=== PATIENT | male | born 1985 | race Caucasian/White ===

== ENCOUNTER → 2016-06-15 | Outpatient (CLI) | payer OTHER ==
[~2016-06-15] MED LIST: /DULO30CA PO; /LAMO10TA PO; AMBI10TA PO; ATIV1TAB10 PO; BACL10TA2 PO; BUTR5DIS2 TD; CELE20TA PO; CLAR5CHW PO; CLARITAN; CLARITIN PO; COQ10 PO; CYCL10TA3 PO; DAILTAB56 PO; Effexor XR PO; FERR325T PO; FERR325T3 PO; FLEXERIL PO; FURO20TA2 PO; INDO50CA PO; LAMI200T3 PO; LASI20TA PO; LIPI10TA PO; LORA10TA2 PO; LORA1TAB PO; MELO15TA3 PO; MELO7.5T6 PO; MELOPOW PO; METO25TA2 OR; METO50TA2 PO; NAPR500T2 PO; NO HOME MEDS; NYST100024 TOP; OMEP20TA7 PO; POTA20TA PO; PRAM0.123 PO; PRAMIPEXOLE PO; PRIL40CA PO; PROBCAP13 PO; RANI150T PO; RANI15TA PO; RISP0.5T3 PO; SPIR25TA2 PO; TRAZ100T2 PO; TRAZ50TA4 PO; ULTR100T PO; VICO5TAB PO; VIST25CA PO; VITA-121 PO; VITA10002 PO; ZYRT10CA PO
--- NOTE | 2016-06-15 12:56 | REP ---
Clinical: Pain. Sciatica. Technique: Single AP view of the pelvis. Findings: Bilateral hips appear symmetric and normal for age. Pelvis is unremarkable. Osseous structures, joint spaces, and surrounding soft tissues are within normal limits. Impression: Normal pelvic radiograph. Signed by Richie Toledo MD 06/15/2016 12:48 P
--- NOTE | 2016-06-15 12:59 | REP ---
Clinical: Lower back pain. Technique: AP, lateral, and coned-down views of the lumbosacral spine. Comparison: 06/11/2009. Findings: Alignment and lordosis maintained. No acute fracture / compression injury or subluxation. Anterior spurring with endplate sclerosis and disc space narrowing along with mild hypertrophic facet changes at the L5-S1 level suggested as well as anterior osteophytosis at the T11-12 level which appears relatively stable. Impression: Mild/early moderate degenerative changes primarily involving the L5-S1 level. No acute fracture / compression injury or subluxation. Signed by Richie Toledo MD 06/15/2016 12:50 P
--- NOTE | 2016-06-15 14:29 | REP ---
MR LUMBAR SPINE WITHOUT CONTRAST: HISTORY: Back and bilateral leg pain. COMPARISON: 09/01/2011 Decreased signal intensity on T2-weighted images is present in the L2-3, L3-4, and L5-S1 intervertebral discs. The discs are decreased in height. These findings are consistent with disc degeneration. There is no disc bulge or herniation at the L1-2 through L4-5 levels. There is hypertrophy of the posterior articulating facets at the L3-4 and L4-5 levels. The nerves exit the neural foramina without compression. A diffuse disc bulge with associated osteophyte formation is present at the L5-S1 level. There is no thecal sac compression. A small right intraforaminal disc protrusion is present. This abuts the right L5 nerve in the distal neural foramen. The left L5 nerve exits the neural foramen without compression. The conus medullaris is normal in appearance terminating at the level of the L1 vertebral body. Increased signal intensity on T2-weighted images is present in the endplates of the L5 and S1 vertebral bodies. This represents degenerative change. IMPRESSION: Diffuse disc bulge at the L5-S1 level without thecal sac compression. A small right intraforaminal disc protrusion is present. This abuts the right L5 nerve in the distal neural foramen. There is no change compared to the previous study. Signed by Magdi Wallace MD 06/15/2016 02:42 P
== END ==
LOC: M RAD 12:19
PROVIDERS: ATTEND Pain Medicine Pain Medicine
DX: M51.26 Other intervertebral disc displacement, lumbar region (principal); M51.36 Other intervertebral disc degeneration, lumbar region

== ENCOUNTER → 2016-07-01 | Outpatient (CLI) | payer OTHER ==
--- NOTE | 2016-07-03 19:26 | SLEEPCENT ---
DATE OF PROCEDURE: 07/01/2016 ORDERED BY: La Mclaughlin Nocturnal polysomnography was performed for the titration of pressure therapy in this patient with obstructive sleep apnea syndrome on clinical grounds with home testing revealing a respiratory event index of 6.4. For testing, the patient was fit with a Flooved Simplus full face mask of medium size, 5 cm of water pressure were applied to the circuit and the lights were extinguished. 7 hours and 38 minutes of data were reviewed. There were 262 minutes of sleep identified. Sleep latency was prolonged at 45 minutes. Rapid eye movement (REM) latency was prolonged at 348 minutes. Sleep architecture improved late in the study and optimal pressure therapy. Overall sleep efficiency was 58%. Patient's EKG showed a sinus rhythm with an average heart rate of 52 beats per minute. EEG showed normal wave forms for wake and sleep. Respiratory events were fully palliated with CPAP air pressure of +15. Remaining measures of sleep physiology were normal. IMPRESSION: Obstructive sleep apnea syndrome (G47.33). RECOMMENDATIONS: Nightly use of pressure therpay, 15 cm of water.
== END ==
LOC: M SLEEP 20:06
PROVIDERS: ATTEND Nurse Practitioner Adult Health
DX: G47.33 Obstructive sleep apnea (adult) (pediatric) (principal)

== ENCOUNTER → 2016-07-31 | Outpatient (REF) | payer OTHER ==
[2016-07-31 11:57] LABS: BASO % 0.3 % (0.0-1.0); EOS # 0.4 K/mm3 (0.0-0.50); EOS % 3.6 % (0.0-3.0); LARGE UNSTAINED CELL # 0.1 K/mm3 (0.0-0.4); LARGE UNSTAINED CELL % 0.7 % (0.0-4.0); LYMPH # 1.9 K/mm3 (1.5-4.5); LYMPH % 16.3 % (24.0-44.0); MEAN CORPUSCULAR HEMOGLOBIN 30.4 pg (27.0-33.0); MEAN CORPUSCULAR HGB CONC 32.8 g/dl (32.0-36.5); MEAN CORPUSCULAR VOLUME 92.8 fl (80.0-96.0); MONO # 0.7 K/mm3 (0.0-0.8); MONO % 6.3 % (0.0-5.0); NEUTROPHILS # 8.1 K/mm3 (1.8-7.7); NEUTROPHILS % 72.8 % (36.0-66.0); PLATELET COUNT, AUTOMATED 264 k/mm3 (150-450); RED CELL DISTRIBUTION WIDTH 13.1 % (11.5-14.5); WHITE BLOOD COUNT 11.2 K/mm3 (4.0-10.0)
[2016-07-31 12:27] LABS: ALBUMIN 3.9 GM/DL (3.2-5.2); ALBUMIN/GLOBULIN RATIO 1.22 (1.00-1.93); ALKALINE PHOSPHATASE 70 U/L (45-117); ALT/SGPT 18 U/L (12-78); ANION GAP 7 MEQ/L (8-16); AST/SGOT 8 U/L (15-37); BILIRUBIN,TOTAL 0.1 MG/DL (0.2-1.0); BLOOD UREA NITROGEN 12 MG/DL (7-18); CALCIUM LEVEL 8.9 MG/DL (8.5-10.1); CARBON DIOXIDE LEVEL 30 MEQ/L (21-32); CHLORIDE LEVEL 103 MEQ/L (98-107); CREATININE FOR GFR 0.83 MG/DL (0.70-1.30); GLOMERULAR FILTRATION RATE > 60.0 (>60); GLUCOSE, FASTING 90 MG/DL (70-105); POTASSIUM SERUM 4.7 MEQ/L (3.5-5.1); SODIUM LEVEL 140 MEQ/L (136-145); TOTAL PROTEIN 7.1 GM/DL (6.4-8.2)
== END ==
LOC: M SFHCCLAY 08:55
PROVIDERS: ATTEND Family Medicine
DX: D50.9 Iron deficiency anemia, unspecified (principal); I10 Essential (primary) hypertension

== ENCOUNTER → 2016-07-31 | Outpatient (CLI) | payer OTHER ==
--- NOTE | 2016-07-31 10:50 | REP ---
Clinical: Cervicalgia. Technique: AP, lateral, flexion/extension, and open-mouth views. Comparison: 02/26/2005. Findings: Degenerative disc osteophyte complex at the C6-7 level and to a lesser extent C5-6 level includes anterior osteophytes with endplate sclerosis and minimal disc space narrowing. Alignment and lordosis maintained. No acute fracture / compression injury or subluxation. Open mouth view demonstrates normal C1-C2 articulation and odontoid process. Neural foramen appear relatively patent. Impression: Moderate to advanced degenerative disc osteophyte complex at the C6-7 and C5-6 levels.
--- NOTE | 2016-07-31 10:55 | REP ---
Clinical: Thoracic pain. Technique: AP, lateral, and swimmer's views of the thoracic spine. Findings: AP view demonstrates mild focal levoconvex scoliosis involving T7 - T9 which is likely chronic with suggestions for endplate sclerosis/disc narrowing and bridging osteophyte at the right T8-9 level. Alignment and kyphosis is otherwise maintained. There is no evidence for acute fracture / compression injury or subluxation. No further significant degenerative changes. Impression: Mild focal levoconvex scoliosis at T7 - T9 with mild degenerative changes
== END ==
LOC: M CLY 09:44
PROVIDERS: ATTEND Family Medicine
DX: M41.34 Thoracogenic scoliosis, thoracic region (principal); M50.322 Other cervical disc degeneration at C5-C6 level; M50.323 Other cervical disc degeneration at C6-C7 level

== ENCOUNTER → 2016-08-28 | Outpatient (CLI) | payer OTHER ==
--- NOTE | 2016-08-28 14:14 | REP ---
MR CERVICAL SPINE WITHOUT CONTRAST: HISTORY: Neck pain. A disc bulge is present at the C4-5 level. There is minimal effacement of the thecal sac without spinal cord compression. The C4 neural foramina are patent. A disc bulge is present at the C5-6 level. There is minimal effacement of the thecal sac without spinal cord compression. The C5 neural foramina are patent. A disc bulge is present at the C6-7 level. There is mild effacement of the thecal sac without spinal cord compression. The C6 neural foramina are patent. There is no other disc bulge or herniation. The remaining neural foramina are patent. The spinal cord is normal in signal intensity. The C5-6 intervertebral disc is decreased in height consistent with disc degeneration. Normal signal intensity is present in the cervical vertebral bodies. IMPRESSION: There is cervical spondylosis at the C4-5 through C6-7 levels without spinal cord compression. Signed by Magdi Wallace MD 08/28/2016 02:19 P
== END ==
LOC: M PLARAD 13:03
PROVIDERS: ATTEND Family Medicine
DX: M47.812 Spondylosis without myelopathy or radiculopathy, cervical region (principal)

== ENCOUNTER 2016-10-11 00:44 | Inpatient (IN) | payer OTHER ==
[~2016-10-11] VITALS: Ht 172.7 cm; Wt 193.2 kg
[2016-10-11] MEDS ORDERED: MELO15TA4 PO (01:02)
[2016-10-11] MEDS ORDERED: BACL-67 PO (01:02)
[2016-10-11] MEDS ORDERED: AMBI10TA PO (01:04)
[2016-10-11] MEDS ORDERED: ZOLO100T PO (01:04)
[2016-10-11] MEDS ORDERED: LATU1TAB PO (01:04)
[2016-10-11] MEDS ORDERED: GABA-282 PO (01:05)
[2016-10-11] MEDS ORDERED: ONDANSETRON 4MG/2ML VIAL (J2405) IV PRN (02:15)
[2016-10-11] MEDS ORDERED: MORPHINE 4 MG/ML 1ML SYRINGE IV ONE (02:15)
[2016-10-11] MEDS: LR 1,000 ML IV SCH ×3 (02:17→20:19)
[2016-10-11] MEDS ORDERED: LAMO100T PO (02:45)
[2016-10-11] MEDS ORDERED: LORA1TAB12 PO (02:45)
[2016-10-11] MEDS ORDERED: OMEP40CA2 PO (02:45)
[2016-10-11] MEDS ORDERED: SPIR50TA2 PO (02:46)
[2016-10-11] MEDS ORDERED: zolPIDEM TARTRATE 10MG TAB PO PRN (09:30)
[2016-10-11 09:59] LABS: ANION GAP 6 MEQ/L (8-16); BLOOD UREA NITROGEN 10 MG/DL (7-18); CALCIUM LEVEL 8.3 MG/DL (8.5-10.1); CARBON DIOXIDE LEVEL 29 MEQ/L (21-32); CHLORIDE LEVEL 104 MEQ/L (98-107); CREATININE FOR GFR 0.75 MG/DL (0.70-1.30); GLOMERULAR FILTRATION RATE > 60.0 (>60); GLUCOSE, FASTING 98 MG/DL (70-105); POTASSIUM SERUM 4.1 MEQ/L (3.5-5.1); SODIUM LEVEL 139 MEQ/L (136-145)
[2016-10-11 10:41] LABS: MEAN CORPUSCULAR HEMOGLOBIN 31.3 pg (27.0-33.0); MEAN CORPUSCULAR HGB CONC 33.7 g/dl (32.0-36.5); MEAN CORPUSCULAR VOLUME 92.9 fl (80.0-96.0); RED CELL DISTRIBUTION WIDTH 12.9 % (11.5-14.5); WHITE BLOOD COUNT 10.6 K/mm3 (4.0-10.0)
[2016-10-11] MEDS: CIPROFLOXACIN 400 MG in APPROPRIATE DILUENT 1 EA IV SCH ×2 (11:28→20:32)
[2016-10-11] MEDS: GABAPENTIN 300 MG CAP PO SCH ×3 (11:28→20:22)
[2016-10-11] MEDS: FERROUS SULFATE 325MG TAB PO SCH ×2 (11:28→20:19)
[2016-10-11] MEDS: BACLOFEN 10 MG TAB PO SCH ×4 (11:29→20:20)
[2016-10-11] MEDS: LORazepam 1 MG TAB PO SCH (11:29)
[2016-10-11] MEDS: SPIRONOLACTONE 50 MG TAB PO SCH (11:29)
[2016-10-11] MEDS: lamoTRIgine 100MG TAB PO SCH ×2 (11:30→20:19)
[2016-10-11] MEDS: CETIRIZINE (ZyrTEC) 10 MG TAB PO SCH (11:30)
[2016-10-11] MEDS: SERTRALINE 100 MG TAB PO SCH (11:31)
[2016-10-11] MEDS: FAMOTIDINE 20 MG TAB PO SCH ×2 (11:31→20:21)
[2016-10-11] MEDS: OMEPRAZOLE 20 MG CAP PO SCH (11:31)
[2016-10-11] MEDS: MORPHINE 10 MG/ML 1ML VIAL IV PRN ×2 (12:32→20:26)
[2016-10-11] MEDS: metroNIDAZOLE 500 MG in APPROPRIATE DILUENT 1 EA IV SCH ×2 (12:32→18:41)
[2016-10-11 14:00] VITALS: BP 114/53
[2016-10-11] MEDS: LURASIDONE 20 MG TAB (LATUDA) PO SCH (20:20)
[2016-10-11] MEDS: PRAMIPEXOLE (MIRAPEX) 0.125 MG TAB PO SCH (20:21)
[2016-10-11] MEDS: PRAZOSIN 1 MG CAP PO SCH (21:58)
[2016-10-11 22:00] VITALS: BP 142/84
[2016-10-12] MEDS: metroNIDAZOLE 500 MG in APPROPRIATE DILUENT 1 EA IV SCH ×3 (03:13→18:40)
[2016-10-12] MEDS: LR 1,000 ML IV SCH (03:13)
[2016-10-12 06:00] VITALS: BP 106/53
[2016-10-12] MEDS: OMEPRAZOLE 20 MG CAP PO SCH (08:42)
[2016-10-12] MEDS: GABAPENTIN 300 MG CAP PO SCH ×3 (08:42→21:41)
[2016-10-12] MEDS: SERTRALINE 100 MG TAB PO SCH (08:42)
[2016-10-12] MEDS: FERROUS SULFATE 325MG TAB PO SCH ×2 (08:42→21:41)
[2016-10-12] MEDS: FAMOTIDINE 20 MG TAB PO SCH ×2 (08:43→21:42)
[2016-10-12] MEDS: CETIRIZINE (ZyrTEC) 10 MG TAB PO SCH (08:43)
[2016-10-12] MEDS: lamoTRIgine 100MG TAB PO SCH ×2 (08:43→21:41)
[2016-10-12] MEDS: LORazepam 1 MG TAB PO SCH (08:43)
[2016-10-12] MEDS: BACLOFEN 10 MG TAB PO SCH ×4 (08:43→21:41)
[2016-10-12] MEDS: SPIRONOLACTONE 50 MG TAB PO SCH (08:43)
[2016-10-12 09:28] LABS: MEAN CORPUSCULAR HEMOGLOBIN 31.9 pg (27.0-33.0); MEAN CORPUSCULAR HGB CONC 33.8 g/dl (32.0-36.5); MEAN CORPUSCULAR VOLUME 94.4 fl (80.0-96.0); RED CELL DISTRIBUTION WIDTH 12.8 % (11.5-14.5); WHITE BLOOD COUNT 7.5 K/mm3 (4.0-10.0)
[2016-10-12 10:00] VITALS: BP 138/84
[2016-10-12] MEDS: CIPROFLOXACIN 400 MG in APPROPRIATE DILUENT 1 EA IV SCH ×2 (10:07→21:41)
[2016-10-12 14:00] VITALS: BP 136/82
[2016-10-12] MEDS: PRAMIPEXOLE (MIRAPEX) 0.125 MG TAB PO SCH (21:41)
[2016-10-12 21:42] VITALS: BP 133/73
[2016-10-12] MEDS: LURASIDONE 20 MG TAB (LATUDA) PO SCH (21:42)
[2016-10-12] MEDS: PRAZOSIN 1 MG CAP PO SCH (21:42)
[2016-10-12 22:00] VITALS: BP 124/60
[2016-10-13] MEDS: metroNIDAZOLE 500 MG in APPROPRIATE DILUENT 1 EA IV SCH (03:48)
[2016-10-13 06:00] VITALS: BP 158/58
[2016-10-13] MEDS: lamoTRIgine 100MG TAB PO SCH (09:04)
[2016-10-13] MEDS: OMEPRAZOLE 20 MG CAP PO SCH (09:05)
[2016-10-13] MEDS: GABAPENTIN 300 MG CAP PO SCH (09:05)
[2016-10-13] MEDS: FERROUS SULFATE 325MG TAB PO SCH (09:05)
[2016-10-13] MEDS: SPIRONOLACTONE 50 MG TAB PO SCH (09:05)
[2016-10-13] MEDS: BACLOFEN 10 MG TAB PO SCH (09:05)
[2016-10-13] MEDS: SERTRALINE 100 MG TAB PO SCH (09:05)
[2016-10-13] MEDS: FAMOTIDINE 20 MG TAB PO SCH (09:05)
[2016-10-13] MEDS: CETIRIZINE (ZyrTEC) 10 MG TAB PO SCH (09:05)
[2016-10-13] MEDS: LORazepam 1 MG TAB PO SCH (09:06)
[2016-10-13 10:00] VITALS: BP 154/60
[2016-10-13] MEDS ORDERED: FLAG500T PO (10:12)
[2016-10-13] MEDS ORDERED: CIPR500T89 PO (10:12)
== END 2016-10-13 10:45 | disposition home or self-care (01) | DRG 244 ==
LOC: EDBD 00:44 → M ED 02:15 → M ED INP 02:16 → M MS5PR 02:16
PROVIDERS: ADMIT Surgery; ATTEND Surgery
DX: K57.32 Diverticulitis of large intestine without perforation or abscess without bleeding (principal)

== ENCOUNTER → 2018-05-06 | Outpatient (REF) | payer MEDICARE, MEDICAID ==
[~2018-05-06] MED LIST changes: +BACL1TAB9 PO; +CIPR-249 PO; +FLAG500T PO; +GABA-843 PO; +LAMI1TAB9 PO; -LAMI200T3 PO; +LAMO100T PO; +LATU1TAB PO; +LORA-243 PO; -LORA10TA2 PO; +LORA1TAB12 PO; +MELO15TA28 PO; -MELO7.5T6 PO; +MELO7.5T7 PO; +NAPR-885 PO; -NAPR500T2 PO; -NYST100024 TOP; +NYST1POW9 TOP; +OMEP40CA2 PO; -PRAM0.123 PO; +PRAM0.126 PO; +SPIR-10 PO; -SPIR25TA2 PO; +SPIR50TA4 PO; +TRAZ-160 PO; -TRAZ50TA4 PO; +ZOLO100T PO
[2018-05-06 17:42] LABS: ALBUMIN 3.6 GM/DL (3.2-5.2); ALT/SGPT 39 U/L (12-78); BILIRUBIN,TOTAL 0.2 MG/DL (0.2-1.0); BLOOD UREA NITROGEN 10 MG/DL (7-18); CALCIUM LEVEL 9.5 MG/DL (8.5-10.1); CARBON DIOXIDE LEVEL 31 MEQ/L (21-32); CHLORIDE LEVEL 99 MEQ/L (98-107); GLOMERULAR FILTRATION RATE > 60.0 (>60); GLUCOSE, FASTING 98 MG/DL (70-100); POTASSIUM SERUM 4.9 MEQ/L (3.5-5.1); SODIUM LEVEL 136 MEQ/L (136-145); TOTAL PROTEIN 7.5 GM/DL (6.4-8.2)
== END ==
LOC: M SFHCCLAY 11:21
PROVIDERS: ATTEND Family Medicine
DX: I10 Essential (primary) hypertension (principal)
CPT/HCPCS: 80053; G0463

== ENCOUNTER → 2018-08-04 | Outpatient (REF) | payer MEDICARE, MEDICAID ==
[~2018-08-04] MED LIST changes: -/DULO30CA PO; -/LAMO10TA PO; +CYMB1CAP5 PO; +LAMI1TAB7 PO
[2018-08-04 18:24] LABS: BASO # 0.1 10^3/uL (0.0-0.2); BASO % 0.5 % (0.0-1.0); EOS # 0.3 10^3/uL (0.0-0.50); EOS % 2.6 % (0.0-3.0); HEMATOCRIT 40.2 % (42.0-52.0); HEMOGLOBIN 12.7 g/dl (13.5-17.5); LYMPH # 2.2 10^3/uL (1.5-4.5); LYMPH % 18.9 % (24.0-44.0); MEAN CORPUSCULAR HGB CONC 31.6 g/dl (32.0-36.5); MEAN CORPUSCULAR VOLUME 94.8 fl (80.0-96.0); MONO # 1.1 10^3/uL (0.0-0.8); MONO % 9.2 % (0.0-5.0); NEUTROPHILS # 7.9 10^3/uL (1.8-7.7); NEUTROPHILS % 67.1 % (36.0-66.0); PLATELET COUNT, AUTOMATED 325 10^3/uL (150-450); RED BLOOD COUNT 4.24 10^6/uL (4.30-6.10); WHITE BLOOD COUNT 11.7 10^3/uL (4.0-10.0)
[2018-08-04 18:49] LABS: ALBUMIN 3.4 GM/DL (3.2-5.2); ALT/SGPT 29 U/L (12-78); BILIRUBIN,TOTAL 0.1 MG/DL (0.2-1.0); BLOOD UREA NITROGEN 9 MG/DL (7-18); CALCIUM LEVEL 8.7 MG/DL (8.5-10.1); CARBON DIOXIDE LEVEL 25 MEQ/L (21-32); CHLORIDE LEVEL 106 MEQ/L (98-107); CHOLESTEROL LEVEL 201 MG/DL (<200); CHOLESTEROL RISK RATIO 5.742 (<5); GLOMERULAR FILTRATION RATE > 60.0 (>60); GLUCOSE, FASTING 122 MG/DL (70-100); HDL CHOLESTEROL 35 MG/DL (>40); IRON (FE) 48 UG/DL (65-175); LDL CHOLESTEROL 100 MG/DL (<100); NON-HDL-C 166 MG/DL; SODIUM LEVEL 138 MEQ/L (136-145); THYROXINE (T4) 9.6 UG/DL (4.5-12.0); TOTAL PROTEIN 6.8 GM/DL (6.4-8.2); TRIGLYCERIDES LEVEL 330 MG/DL (<150)
[2018-08-04 18:52] LABS: VITAMIN B12 LEVEL 1109 PG/ML (247-911)
== END ==
LOC: M SFHCCLAY 13:41
PROVIDERS: ATTEND Family Medicine
DX: I10 Essential (primary) hypertension (principal); E66.01 Morbid (severe) obesity due to excess calories; R06.02 Shortness of breath; D50.9 Iron deficiency anemia, unspecified; E78.5 Hyperlipidemia, unspecified
CPT/HCPCS: 80053; 80061; 82607; 83540; 84436; 84443; 85025; G0463

== ENCOUNTER → 2018-11-10 | Outpatient (REF) | payer MEDICARE, MEDICAID ==
[~2018-11-10] MED LIST changes: -INDO50CA PO; +INDO50CA11 PO; -TRAZ-160 PO; +TRAZ-252 PO
[2018-11-11 12:20] LABS: BASO # 0.1 10^3/uL (0.0-0.2); BASO % 0.7 % (0.0-1.0); EOS # 0.4 10^3/uL (0.0-0.50); EOS % 2.7 % (0.0-3.0); HEMATOCRIT 42.2 % (42.0-52.0); HEMOGLOBIN 13.4 g/dl (13.5-17.5); LYMPH # 2.3 10^3/uL (1.5-4.5); LYMPH % 17.3 % (24.0-44.0); MEAN CORPUSCULAR HEMOGLOBIN 30.9 pg (27.0-33.0); MEAN CORPUSCULAR HGB CONC 31.8 g/dl (32.0-36.5); MEAN CORPUSCULAR VOLUME 97.2 fl (80.0-96.0); MONO # 1.1 10^3/uL (0.0-0.8); MONO % 8.5 % (0.0-5.0); NEUTROPHILS % 68.8 % (36.0-66.0); PLATELET COUNT, AUTOMATED 328 10^3/uL (150-450); RED BLOOD COUNT 4.34 10^6/uL (4.30-6.10); WHITE BLOOD COUNT 13.1 10^3/uL (4.0-10.0)
== END ==
LOC: M SFHCCLAY 14:20
PROVIDERS: ATTEND Family Medicine
DX: D50.9 Iron deficiency anemia, unspecified (principal)
CPT/HCPCS: 83540; 85025; G0463

== ENCOUNTER → 2018-11-10 | Outpatient (CLI) | payer MEDICARE, MEDICAID ==
--- NOTE | 2018-11-10 16:57 | REP ---
Left knee series: Six views. History: Left knee pain. Findings: Six radiographic views of the left knee demonstrate advanced medial compartment and lateral compartment osteoarthritis with spurring. Mild patellofemoral narrowing and spur formation is seen. No erosive changes seen. No fractures noted. Impression: Moderate three compartment osteoarthritis of the left knee. Electronically Signed by Mukesh Clemens MD 11/10/2018 04:49 P
== END ==
LOC: M CLY 14:46
PROVIDERS: ATTEND Family Medicine
DX: M17.12 Unilateral primary osteoarthritis, left knee (principal); M79.662 Pain in left lower leg

== ENCOUNTER → 2018-12-22 | Outpatient (CLI) | payer MEDICARE, MEDICAID ==
[~2018-12-22] MED LIST changes: +BUPR50TA PO; +D3400CAP PO; -INDO50CA11 PO; +INDO50CA91 PO; -LAMO100T PO; +LAMO100T3 PO; +LISI10TA4 PO; -LORA1TAB12 PO; +LORA1TAB4 PO; +NALT50TA4 PO; -OMEP40CA2 PO; +OMEP40CA97 PO; +PRAM1.5T2 PO
--- NOTE | 2018-12-22 10:24 | PFTRPT ---
Height: 68.00 Inches Weight: 570.00 Lbs BSA: 3.19 Diagnosis: R05 DATE OF PROCEDURE: 12/22/2018 ORDERED BY: LEI Draper Pre and post bronchodilator study of excellent technical quality. Forced vital capacity mildly reduced. FEV1 in proportion. Obstructive index is, therefore, normal; but expiratory limb of the flow volume loop does suggest flow rate limitation. Favorable bronchodilator response is identified. Patient was unable to perform plethysmography maneuvers. Slow vital capacity is generally in proportion to the forced maneuver. Diffusing capacity is normal and remains normal when corrected for alveolar volume. Hemoglobin acceptable at 13.4. Diffusing capacity measurement could not be made as the door could not be shut on the plethysmograph. IMPRESSION: Reversible obstructive ventilatory impairment, suggesting underlying asthma. Please correlate clinically. MTDD
== END ==
LOC: M CARPUL 09:47
PROVIDERS: ATTEND Nurse Practitioner Family
DX: R05 Cough (principal)

== ENCOUNTER → 2019-02-23 | Outpatient (REF) | payer MEDICARE, MEDICAID ==
[~2019-02-23] MED LIST changes: +LAMO100T PO; -LAMO100T3 PO; +LORA1TAB12 PO; -LORA1TAB4 PO
[2019-02-24 12:25] LABS: BASO # 0.1 10^3/uL (0.0-0.2); BASO % 0.7 % (0.0-1.0); EOS # 0.4 10^3/uL (0.0-0.5); EOS % 3.6 % (0.0-3.0); HEMATOCRIT 41.1 % (42.0-52.0); HEMOGLOBIN 12.7 g/dl (13.5-17.5); LYMPH # 1.8 10^3/uL (1.5-5.0); LYMPH % 15.6 % (24.0-44.0); MEAN CORPUSCULAR HEMOGLOBIN 30.3 pg (27.0-33.0); MEAN CORPUSCULAR HGB CONC 30.9 g/dl (32.0-36.5); MEAN CORPUSCULAR VOLUME 98.1 fl (80.0-96.0); MONO # 0.9 10^3/uL (0.0-0.8); MONO % 7.3 % (0.0-5.0); NEUTROPHILS # 8.3 10^3/uL (1.5-8.5); NEUTROPHILS % 70.8 % (36.0-66.0); PLATELET COUNT, AUTOMATED 325 10^3/uL (150-450); RED BLOOD COUNT 4.19 10^6/uL (4.30-6.10); WHITE BLOOD COUNT 11.7 10^3/uL (4.0-10.0)
[2019-02-24 12:30] LABS: FERRITIN 215 NG/ML (26-388); IRON (FE) 48 UG/DL (65-175)
== END ==
LOC: M SFHCCLAY 14:27
PROVIDERS: ATTEND Family Medicine
DX: D50.9 Iron deficiency anemia, unspecified (principal)
CPT/HCPCS: 82728; 83540; 85025; G0463

== ENCOUNTER 2022-02-23 14:15 | Outpatient (RCR) | payer MEDICAID, MEDICARE ==
[~2022-02-23 14:15] MED LIST changes: +BUPR-69 PO; -BUPR50TA PO; +GABA-282 PO; -GABA-843 PO; -LAMO100T PO; +LAMO100T3 PO; +LISI10TA22 PO; -LISI10TA4 PO; -LORA1TAB12 PO; +LORA1TAB4 PO; +OMEP40CA4 PO; -OMEP40CA97 PO; +RISP-7 PO; -RISP0.5T3 PO
== END 2022-03-02 ==
LOC: M PT 14:15
PROVIDERS: ATTEND Internal Medicine
DX: I89.0 Lymphedema, not elsewhere classified (principal)

== ENCOUNTER → 2022-03-06 | Outpatient (REF) | payer MEDICARE, MEDICAID ==
[2022-03-06 13:52] LABS: APPEARANCE, URINE MANUAL HAZY (CLEAR); BILIRUBIN, URINE MANUAL NEGATIVE (NEGATIVE); BLOOD URINE MANUAL TRACE (NEGATIVE); COLOR, URINE MANUAL YELLOW (YELLOW); GLUCOSE, URINE (UA) MANUAL NEGATIVE (NEGATIVE); KETONE, URINE MANUAL NEGATIVE (NEGATIVE); LEUKOCYTE ESTERASE, URINE MAN POSITIVE (NEGATIVE); NITRITE, URINE MANUAL NEGATIVE (NEGATIVE); PH,URINE MAN 5.5 UNITS (5.0 - 7.0); PROTEIN, URINE MANUAL TRACE mg/dL (NEGATIVE); SPECIFIC GRAVITY,URINE MANUAL 1.015 (1.002-1.035); UROBILINOGEN, URINE MANUAL NORMAL (NORMAL)
[2022-03-06 14:24] LABS: BACTERIA, URINE MOD AMOUNT; HYALINE CAST, URINE NONE SEEN /lpf (0-1); SQUAMOUS EPITHELIAL CELL URINE MOD AMOUNT /hpf (SMALL AMT); WBC, URINE 20-30 /hpf (0-3)
== END ==
LOC: M SMT 13:11
PROVIDERS: ATTEND Physician Assistant
DX: N39.0 Urinary tract infection, site not specified (principal)

== ENCOUNTER 2023-08-17 16:19 | Inpatient (IN) | payer MEDICARE, MEDICAID ==
[~2023-08-17] VITALS: Ht 172.7 cm; Wt 240.0 kg
[~2023-08-17 16:19] MED LIST changes: +GABA-1172 PO; -GABA-282 PO; +LORA1TAB23 PO; -LORA1TAB4 PO; +NYST1POW3 TOP; -NYST1POW9 TOP; -RISP-7 PO; +RISP0.5T82 PO
[2023-08-17 17:10] LABS: HEMATOCRIT 39.5 % (42.0-52.0); HEMOGLOBIN 12.6 g/dl (13.5-17.5); MEAN CORPUSCULAR HEMOGLOBIN 30.6 pg (27.0-33.0); MEAN CORPUSCULAR HGB CONC 31.9 g/dl (32.0-36.5); MEAN CORPUSCULAR VOLUME 95.9 fl (80.0-96.0); PLATELET COUNT, AUTOMATED 345 10^3/uL (150-450); RED BLOOD COUNT 4.12 10^6/uL (4.30-6.10); WHITE BLOOD COUNT 11.9 10^3/uL (4.0-10.0)
[2023-08-17 17:42] LABS: ALKALINE PHOSPHATASE 68 U/L (46-116); ALT/SGPT 27 U/L (7.0-40); AST/SGOT 14 U/L (<34); BILIRUBIN,DIRECT < 0.1 MG/DL (<0.4); BILIRUBIN,TOTAL < 0.2 MG/DL (0.3-1.2); BLOOD UREA NITROGEN 16 MG/DL (9-23); CALCIUM LEVEL 10.1 MG/DL (8.5-10.1); CARBON DIOXIDE LEVEL 30 MMOL/L (20-31); CHLORIDE LEVEL 100 MMOL/L (98-107); CREATININE FOR GFR 0.95 MG/DL (0.70-1.30); GLOMERULAR FILTRATION RATE > 60.0 (>60); GLUCOSE, FASTING 92 MG/DL (60-100); POTASSIUM SERUM 5.3 MMOL/L (3.5-5.1); SODIUM LEVEL 133 MMOL/L (136-145); TOTAL PROTEIN 6.8 G/DL (5.7-8.2)
[2023-08-17] MEDS ORDERED: NICO21DI37 TD (20:12)
[2023-08-17] MEDS ORDERED: NYST-13 TOP (20:12)
[2023-08-17] MEDS ORDERED: CHOL10CA2 PO (20:12)
[2023-08-17] MEDS ORDERED: NITR100C2 PO (20:12)
[2023-08-17] MEDS ORDERED: LURA80TA PO (20:12)
[2023-08-17] MEDS ORDERED: SEMA0.257 PO (20:12)
[2023-08-17] MEDS ORDERED: PRAM0.123 PO (20:12)
[2023-08-17] MEDS ORDERED: LORA1TAB23 PO (20:12)
[2023-08-17] MEDS ORDERED: ALBU2.5V10 INH (20:12)
[2023-08-17] MEDS ORDERED: PREG200C2 PO (20:12)
[2023-08-17] MEDS ORDERED: VENTAER INH (20:12)
[2023-08-17] MEDS ORDERED: ASEN5TAB SL (20:12)
[2023-08-17] MEDS ORDERED: HYDR-3719 PO (20:12)
[2023-08-17] MEDS ORDERED: LISI40TA4 PO (20:12)
[2023-08-17] MEDS ORDERED: ADVA115A INH (20:12)
[2023-08-17] MEDS ORDERED: HOME MED LIST COMPLETE! XX SCH (20:30)
[2023-08-17] MEDS: lamoTRIgine 100MG TAB PO SCH (21:00)
[2023-08-17] MEDS ORDERED: NYSTATIN 100,000 UNITS/GM TOPICAL PWD 15GM TOP SCH (21:00)
[2023-08-17] MEDS: PRAMIPEXOLE (MIRAPEX) 0.125 MG TAB PO SCH (21:00)
[2023-08-18 00:54] LABS: LIPASE 29 U/L (12-53)
[2023-08-18 00:55] LABS: AMYLASE 27 U/L (30-118)
[2023-08-18] MEDS ORDERED: ALBUTEROL SULFATE 2.5MG/0.5ML INH NEB SOLN INH PRN (02:00)
[2023-08-18] MEDS: ALBUTEROL 90 MCG/ACT 8GM HFA INHALER INH SCH (03:48)
[2023-08-18] MEDS: ADVAIR HFA 115/21MCG INHALER INH SCH (07:52)
[2023-08-18 08:34] LABS: HEMATOCRIT 36.5 % (42.0-52.0); HEMOGLOBIN 11.7 g/dl (13.5-17.5); MEAN CORPUSCULAR HEMOGLOBIN 30.2 pg (27.0-33.0); MEAN CORPUSCULAR HGB CONC 32.1 g/dl (32.0-36.5); MEAN CORPUSCULAR VOLUME 94.3 fl (80.0-96.0); PLATELET COUNT, AUTOMATED 332 10^3/uL (150-450); RED BLOOD COUNT 3.87 10^6/uL (4.30-6.10); WHITE BLOOD COUNT 12.3 10^3/uL (4.0-10.0)
[2023-08-18 08:48] LABS: INR 1.08; PARTIAL THROMBOPLASTIN TIME 32.6 SECONDS (24.8-34.2); PROTHROMBIN TIME 13.7 SECONDS (12.5-14.5)
[2023-08-18 08:52] LABS: ALBUMIN 3.2 G/DL (3.2-5.2); ALKALINE PHOSPHATASE 64 U/L (46-116); ALT/SGPT 19 U/L (7.0-40); AST/SGOT 16 U/L (<34); BILIRUBIN,TOTAL 0.2 MG/DL (0.3-1.2); BLOOD UREA NITROGEN 19 MG/DL (9-23); CALCIUM LEVEL 10.1 MG/DL (8.5-10.1); CARBON DIOXIDE LEVEL 29 MMOL/L (20-31); CHLORIDE LEVEL 100 MMOL/L (98-107); CREATININE FOR GFR 1.02 MG/DL (0.70-1.30); GLOMERULAR FILTRATION RATE > 60.0 (>60); GLUCOSE, FASTING 102 MG/DL (60-100); SODIUM LEVEL 133 MMOL/L (136-145); TOTAL PROTEIN 6.7 G/DL (5.7-8.2)
[2023-08-18] MEDS ORDERED: NYSTATIN CREAM 15GM TOP SCH (09:00)
[2023-08-18] MEDS ORDERED: lisinopriL 40MG TAB PO SCH (09:00)
[2023-08-18] MEDS: ASENAPINE 5MG SUBLINGUAL TAB (SAPHRIS) SL SCH (09:00)
[2023-08-18] MEDS: HYDROcodone/APAP LIQUID 7.5-325MG 15ML UDC (LORTAB ELIXIR) PO PRN (09:49)
[2023-08-18] MEDS: BACLOFEN 10 MG TAB PO SCH (09:49)
[2023-08-18] MEDS: SERTRALINE 100 MG TAB PO SCH (09:50)
[2023-08-18] MEDS: OMEPRAZOLE 20MG CAP PO SCH (09:50)
[2023-08-18] MEDS: lamoTRIgine 100MG TAB PO SCH (09:50)
[2023-08-18] MEDS: NITROFURANTOIN (MACROBID) 100 MG CAP PO SCH (09:50)
[2023-08-18] MEDS: amLODIPine 5 MG TAB PO SCH (09:50)
[2023-08-18] MEDS: NYSTATIN 100,000 UNITS/GM TOPICAL PWD 15GM TOP SCH (13:11)
[2023-08-18] MEDS: NICOTINE 21MG/24HR 1 EA TRANSDERMAL TD SCH (13:52)
[2023-08-18] MEDS ORDERED: ENOXAPARIN 40MG/0.4ML SYRINGE (J1650 PER 10MG) SC SCH (17:50)
[2023-08-19] MEDS: ENOXAPARIN 60MG/0.6ML SYRINGE (J1650 PER 10MG) SC SCH (00:24)
[2023-08-19 07:41] LABS: HEMATOCRIT 35.4 % (42.0-52.0); HEMOGLOBIN 11.5 g/dl (13.5-17.5); MEAN CORPUSCULAR HEMOGLOBIN 30.9 pg (27.0-33.0); MEAN CORPUSCULAR HGB CONC 32.5 g/dl (32.0-36.5); MEAN CORPUSCULAR VOLUME 95.2 fl (80.0-96.0); PLATELET COUNT, AUTOMATED 298 10^3/uL (150-450); RED BLOOD COUNT 3.72 10^6/uL (4.30-6.10)
[2023-08-19 08:17] LABS: ALBUMIN 2.9 G/DL (3.2-5.2); ALKALINE PHOSPHATASE 58 U/L (46-116); ALT/SGPT 15 U/L (7.0-40); AST/SGOT 17 U/L (<34); BILIRUBIN,TOTAL 0.2 MG/DL (0.3-1.2); BLOOD UREA NITROGEN 16 MG/DL (9-23); CALCIUM LEVEL 9.4 MG/DL (8.5-10.1); CARBON DIOXIDE LEVEL 28 MMOL/L (20-31); CHLORIDE LEVEL 103 MMOL/L (98-107); CREATININE FOR GFR 0.67 MG/DL (0.70-1.30); GLOMERULAR FILTRATION RATE > 60.0 (>60); GLUCOSE, FASTING 100 MG/DL (60-100); POTASSIUM SERUM 4.3 MMOL/L (3.5-5.1); SODIUM LEVEL 136 MMOL/L (136-145); TOTAL PROTEIN 6.4 G/DL (5.7-8.2)
[2023-08-19] MEDS: ACETAMINOPHEN TAB 650MG DOSE (2X325MG) PO PRN (22:07)
[2023-08-19] MEDS: LORazepam 0.5 MG TAB PO PRN (23:50)
[2023-08-20] MEDS: POLYTRIM OPTH DROPS 10ML OU SCH (15:00)
[2023-08-21 08:19] LABS: HEMATOCRIT 34.9 % (42.0-52.0); HEMOGLOBIN 11.3 g/dl (13.5-17.5); MEAN CORPUSCULAR HEMOGLOBIN 30.7 pg (27.0-33.0); MEAN CORPUSCULAR HGB CONC 32.4 g/dl (32.0-36.5); MEAN CORPUSCULAR VOLUME 94.8 fl (80.0-96.0); PLATELET COUNT, AUTOMATED 286 10^3/uL (150-450); RED BLOOD COUNT 3.68 10^6/uL (4.30-6.10); WHITE BLOOD COUNT 9.8 10^3/uL (4.0-10.0)
[2023-08-21 08:49] LABS: ALBUMIN 3.1 G/DL (3.2-5.2); ALKALINE PHOSPHATASE 56 U/L (46-116); ALT/SGPT 31 U/L (7.0-40); AST/SGOT 20 U/L (<34); BILIRUBIN,TOTAL 0.2 MG/DL (0.3-1.2); BLOOD UREA NITROGEN 11 MG/DL (9-23); CALCIUM LEVEL 9.7 MG/DL (8.5-10.1); CARBON DIOXIDE LEVEL 28 MMOL/L (20-31); CHLORIDE LEVEL 104 MMOL/L (98-107); CREATININE FOR GFR 0.84 MG/DL (0.70-1.30); GLOMERULAR FILTRATION RATE > 60.0 (>60); GLUCOSE, FASTING 103 MG/DL (60-100); POTASSIUM SERUM 4.3 MMOL/L (3.5-5.1); SODIUM LEVEL 138 MMOL/L (136-145); TOTAL PROTEIN 6.6 G/DL (5.7-8.2)
[2023-08-23 15:56] LABS: HEMATOCRIT 36.8 % (42.0-52.0); HEMOGLOBIN 11.8 g/dl (13.5-17.5); MEAN CORPUSCULAR HEMOGLOBIN 30.7 pg (27.0-33.0); MEAN CORPUSCULAR HGB CONC 32.1 g/dl (32.0-36.5); MEAN CORPUSCULAR VOLUME 95.8 fl (80.0-96.0); PLATELET COUNT, AUTOMATED 290 10^3/uL (150-450); RED BLOOD COUNT 3.84 10^6/uL (4.30-6.10); WHITE BLOOD COUNT 9.5 10^3/uL (4.0-10.0)
[2023-08-23 16:16] LABS: ALBUMIN 3.2 G/DL (3.2-5.2); ALKALINE PHOSPHATASE 55 U/L (46-116); ALT/SGPT 50 U/L (7.0-40); AST/SGOT 35 U/L (<34); BILIRUBIN,TOTAL 0.2 MG/DL (0.3-1.2); BLOOD UREA NITROGEN 8 MG/DL (9-23); CALCIUM LEVEL 9.5 MG/DL (8.5-10.1); CARBON DIOXIDE LEVEL 28 MMOL/L (20-31); CHLORIDE LEVEL 103 MMOL/L (98-107); CREATININE FOR GFR 0.67 MG/DL (0.70-1.30); GLOMERULAR FILTRATION RATE > 60.0 (>60); GLUCOSE, FASTING 115 MG/DL (60-100); POTASSIUM SERUM 4.2 MMOL/L (3.5-5.1); SODIUM LEVEL 137 MMOL/L (136-145); TOTAL PROTEIN 6.8 G/DL (5.7-8.2)
[2023-08-23 18:32] VITALS: BP 156/71; TEMP 98.6; O2SAT 91
[2023-08-23] MEDS: FUROSEMIDE 20MG/2ML VIAL IV SCH (18:48)
[2023-08-23 21:11] VITALS: BP 142/47; TEMP 98.4; O2SAT 93
[2023-08-24 05:49] VITALS: BP 136/61; TEMP 97.7; O2SAT 93
[2023-08-24 06:40] LABS: HEMATOCRIT 35.1 % (42.0-52.0); HEMOGLOBIN 11.2 g/dl (13.5-17.5); MEAN CORPUSCULAR HGB CONC 31.9 g/dl (32.0-36.5); MEAN CORPUSCULAR VOLUME 94.1 fl (80.0-96.0); PLATELET COUNT, AUTOMATED 282 10^3/uL (150-450); RED BLOOD COUNT 3.73 10^6/uL (4.30-6.10); WHITE BLOOD COUNT 9.7 10^3/uL (4.0-10.0)
[2023-08-24 06:47] LABS: ALBUMIN 3.3 G/DL (3.2-5.2); ALKALINE PHOSPHATASE 54 U/L (46-116); ALT/SGPT 54 U/L (7.0-40); AST/SGOT 25 U/L (<34); BILIRUBIN,TOTAL 0.3 MG/DL (0.3-1.2); BLOOD UREA NITROGEN 9 MG/DL (9-23); CALCIUM LEVEL 9.6 MG/DL (8.5-10.1); CARBON DIOXIDE LEVEL 30 MMOL/L (20-31); CHLORIDE LEVEL 103 MMOL/L (98-107); CREATININE FOR GFR 0.77 MG/DL (0.70-1.30); GLOMERULAR FILTRATION RATE > 60.0 (>60); GLUCOSE, FASTING 102 MG/DL (60-100); POTASSIUM SERUM 3.7 MMOL/L (3.5-5.1); SODIUM LEVEL 138 MMOL/L (136-145); TOTAL PROTEIN 6.6 G/DL (5.7-8.2)
[2023-08-24 14:00] VITALS: BP 135/61; TEMP 98.2; O2SAT 91
[2023-08-24] MEDS ORDERED: PERCOCET 5MG/325MG TAB PO PRN (15:00)
[2023-08-24] MEDS: PREGABALIN 100 MG CAP (LYRICA) PO SCH (16:34)
[2023-08-24] MEDS: SPIRONOLACTONE 50 MG TAB PO SCH (16:34)
[2023-08-24] MEDS: LURASIDONE HCL 40MG TAB (LATUDA) PO SCH (17:13)
[2023-08-24 20:17] VITALS: BP 135/59; TEMP 98.2; O2SAT 91
[2023-08-25 05:17] VITALS: BP 146/76; TEMP 97.7; O2SAT 92
[2023-08-25 14:00] VITALS: BP 149/68; TEMP 98.1; O2SAT 91
[2023-08-25] MEDS: CIPROFLOXACIN 500MG TABLET PO SCH (18:52)
[2023-08-25 21:20] VITALS: BP 143/58; TEMP 98.1; O2SAT 90
[2023-08-25] MEDS: CARBAMIDE PEROXIDE 6.5% OTIC SOLN 15ML AU SCH (21:36)
[2023-08-26 04:40] VITALS: BP 143/61; TEMP 98.1; O2SAT 93
[2023-08-26 06:45] LABS: BLOOD UREA NITROGEN 10 MG/DL (9-23); CALCIUM LEVEL 9.6 MG/DL (8.5-10.1); CARBON DIOXIDE LEVEL 29 MMOL/L (20-31); CHLORIDE LEVEL 102 MMOL/L (98-107); CREATININE FOR GFR 0.72 MG/DL (0.70-1.30); GLOMERULAR FILTRATION RATE > 60.0 (>60); GLUCOSE, FASTING 108 MG/DL (60-100); MAGNESIUM LEVEL 1.8 MG/DL (1.8-2.4); POTASSIUM SERUM 3.8 MMOL/L (3.5-5.1); SODIUM LEVEL 138 MMOL/L (136-145)
[2023-08-26 14:00] VITALS: BP 142/64; TEMP 98.1; O2SAT 98
[2023-08-26 22:00] VITALS: BP 139/95; TEMP 98.1; O2SAT 98
[2023-08-27 05:23] VITALS: BP 145/93; TEMP 97.3; O2SAT 91
[2023-08-27 06:32] LABS: BLOOD UREA NITROGEN 11 MG/DL (9-23); CALCIUM LEVEL 9.5 MG/DL (8.5-10.1); CARBON DIOXIDE LEVEL 28 MMOL/L (20-31); CHLORIDE LEVEL 104 MMOL/L (98-107); GLOMERULAR FILTRATION RATE > 60.0 (>60); GLUCOSE, FASTING 114 MG/DL (60-100); POTASSIUM SERUM 3.8 MMOL/L (3.5-5.1); SODIUM LEVEL 139 MMOL/L (136-145)
[2023-08-27 14:00] VITALS: BP 132/62; TEMP 97.5; O2SAT 97
[2023-08-27 21:00] VITALS: BP 136/62; TEMP 97.9; O2SAT 91
[2023-08-28 05:10] VITALS: BP 132/60; TEMP 97.7; O2SAT 91
[2023-08-28 06:43] LABS: BASO # 0.1 10^3/uL (0.0-0.2); BASO % 0.7 % (0.0-1.0); EOS # 0.4 10^3/uL (0.0-0.5); EOS % 3.5 % (0.0-3.0); HEMATOCRIT 37.2 % (42.0-52.0); HEMOGLOBIN 11.8 g/dl (13.5-17.5); LYMPH # 1.1 10^3/uL (1.5-5.0); LYMPH % 11.6 % (24.0-44.0); MEAN CORPUSCULAR HEMOGLOBIN 29.7 pg (27.0-33.0); MEAN CORPUSCULAR HGB CONC 31.7 g/dl (32.0-36.5); MEAN CORPUSCULAR VOLUME 93.7 fl (80.0-96.0); MONO # 0.8 10^3/uL (0.0-0.8); MONO % 7.6 % (2.0-8.0); NEUTROPHILS # 7.3 10^3/uL (1.5-8.5); NEUTROPHILS % 73.9 % (36.0-66.0); PLATELET COUNT, AUTOMATED 297 10^3/uL (150-450); RED BLOOD COUNT 3.97 10^6/uL (4.30-6.10); WHITE BLOOD COUNT 9.9 10^3/uL (4.0-10.0)
[2023-08-28 07:19] LABS: BLOOD UREA NITROGEN 12 MG/DL (9-23); CALCIUM LEVEL 9.6 MG/DL (8.5-10.1); CARBON DIOXIDE LEVEL 28 MMOL/L (20-31); CHLORIDE LEVEL 105 MMOL/L (98-107); CREATININE FOR GFR 0.62 MG/DL (0.70-1.30); GLOMERULAR FILTRATION RATE > 60.0 (>60); GLUCOSE, FASTING 107 MG/DL (60-100); POTASSIUM SERUM 3.8 MMOL/L (3.5-5.1); SODIUM LEVEL 140 MMOL/L (136-145)
[2023-08-28 14:00] VITALS: BP 143/71; TEMP 98.1; O2SAT 90
[2023-08-28 21:00] VITALS: BP 106/62; TEMP 98.1; O2SAT 91
[2023-08-29 05:05] VITALS: BP 121/64; TEMP 97.9; O2SAT 94
[2023-08-29 07:05] LABS: BLOOD UREA NITROGEN 15 MG/DL (9-23); CALCIUM LEVEL 8.8 MG/DL (8.5-10.1); CARBON DIOXIDE LEVEL 26 MMOL/L (20-31); CHLORIDE LEVEL 108 MMOL/L (98-107); CREATININE FOR GFR 0.68 MG/DL (0.70-1.30); GLOMERULAR FILTRATION RATE > 60.0 (>60); GLUCOSE, FASTING 118 MG/DL (60-100); MAGNESIUM LEVEL 1.8 MG/DL (1.8-2.4); POTASSIUM SERUM 3.8 MMOL/L (3.5-5.1); SODIUM LEVEL 144 MMOL/L (136-145)
[2023-08-29 14:00] VITALS: BP 129/63; TEMP 98.1; O2SAT 93
[2023-08-29 20:00] VITALS: BP 125/67; TEMP 98.1; O2SAT 92
[2023-08-30 05:21] VITALS: BP 126/67; TEMP 97.2; O2SAT 91
[2023-08-30 06:39] LABS: BLOOD UREA NITROGEN 15 MG/DL (9-23); CARBON DIOXIDE LEVEL 27 MMOL/L (20-31); CHLORIDE LEVEL 107 MMOL/L (98-107); CREATININE FOR GFR 0.64 MG/DL (0.70-1.30); GLOMERULAR FILTRATION RATE > 60.0 (>60); GLUCOSE, FASTING 107 MG/DL (60-100); MAGNESIUM LEVEL 1.9 MG/DL (1.8-2.4); POTASSIUM SERUM 3.7 MMOL/L (3.5-5.1); SODIUM LEVEL 141 MMOL/L (136-145)
[2023-08-30 14:00] VITALS: BP 142/60; TEMP 98.1; O2SAT 93
[2023-08-30 22:00] VITALS: BP 130/67; TEMP 97.9; O2SAT 96
[2023-08-31 01:10] VITALS: O2SAT 92
[2023-08-31 05:11] VITALS: BP 141/57; TEMP 97.2; O2SAT 93
[2023-08-31 07:28] LABS: BLOOD UREA NITROGEN 15 MG/DL (9-23); CALCIUM LEVEL 9.5 MG/DL (8.5-10.1); CARBON DIOXIDE LEVEL 28 MMOL/L (20-31); CHLORIDE LEVEL 106 MMOL/L (98-107); CREATININE FOR GFR 0.63 MG/DL (0.70-1.30); GLOMERULAR FILTRATION RATE > 60.0 (>60); GLUCOSE, FASTING 114 MG/DL (60-100); MAGNESIUM LEVEL 2.1 MG/DL (1.8-2.4); POTASSIUM SERUM 3.9 MMOL/L (3.5-5.1); SODIUM LEVEL 141 MMOL/L (136-145)
[2023-08-31 14:00] VITALS: BP 147/71; TEMP 97.9; O2SAT 91
[2023-08-31] MEDS ORDERED: PILL CUTTER 1 EACH XX ONE (14:27)
[2023-08-31] MEDS: CETIRIZINE (ZyrTEC) 10 MG TAB PO SCH (14:28)
[2023-08-31] MEDS: FLUTICASONE PROP 0.05% NASAL SPRAY 16 GM (FLONASE) NARES SCH (14:28)
[2023-08-31 21:20] VITALS: BP 135/65; TEMP 98.1; O2SAT 91
[2023-09-01 00:58] VITALS: O2SAT 91
[2023-09-01 03:47] VITALS: O2SAT 80
[2023-09-01 03:48] VITALS: O2SAT 91
[2023-09-01 05:00] VITALS: BP 155/59; TEMP 97.2; O2SAT 91
[2023-09-01 08:21] LABS: BLOOD UREA NITROGEN 15 MG/DL (9-23); CALCIUM LEVEL 9.2 MG/DL (8.5-10.1); CARBON DIOXIDE LEVEL 29 MMOL/L (20-31); CHLORIDE LEVEL 108 MMOL/L (98-107); CREATININE FOR GFR 0.71 MG/DL (0.70-1.30); GLOMERULAR FILTRATION RATE > 60.0 (>60); GLUCOSE, FASTING 109 MG/DL (60-100); MAGNESIUM LEVEL 1.9 MG/DL (1.8-2.4); POTASSIUM SERUM 3.6 MMOL/L (3.5-5.1); SODIUM LEVEL 144 MMOL/L (136-145)
[2023-09-01] MEDS: TORSEMIDE 20 MG TAB PO SCH (10:00)
[2023-09-01 14:00] VITALS: BP 141/68; TEMP 99.3; O2SAT 93
[2023-09-01 20:15] VITALS: BP_SYST 137; BP_SYST 234; BP_DIAS 67; TEMP 98.2; O2SAT 91
[2023-09-02 06:00] VITALS: BP 138/69; TEMP 98.4; O2SAT 90
[2023-09-02] MEDS: ALBUTEROL 90 MCG/ACT 8GM HFA INHALER INH PRN (11:26)
[2023-09-02 14:00] VITALS: BP 142/65; TEMP 98.8; O2SAT 92
[2023-09-02] MEDS: OZEMPIC SC SCH (14:03)
[2023-09-02 21:00] VITALS: BP 136/60; TEMP 98.6; O2SAT 91
[2023-09-03 05:00] VITALS: BP 117/64; TEMP 97.3; O2SAT 90
[2023-09-04 06:00] VITALS: BP 132/63; TEMP 97.3; O2SAT 92
[2023-09-05 05:28] VITALS: BP 133/63; TEMP 98.1; O2SAT 90
[2023-09-05 14:00] VITALS: BP 102/51; TEMP 98.4; O2SAT 92
[2023-09-05 18:22] VITALS: BP 119/79; TEMP 98.8; O2SAT 89
[2023-09-06 06:23] VITALS: BP 121/76; TEMP 98.1; O2SAT 89
[2023-09-06 20:00] VITALS: BP 129/75; TEMP 98.4; O2SAT 92
[2023-09-07 06:39] VITALS: BP 129/75; TEMP 98.4; O2SAT 92
[2023-09-08 05:43] VITALS: BP 119/57; TEMP 98.6; O2SAT 90
[2023-09-08] MEDS: CETIRIZINE (ZyrTEC) 10 MG TAB PO SCH (13:25)
[2023-09-08] MEDS: NYSTATIN 100,000 UNITS/GM TOPICAL PWD 15GM TOP SCH (13:27)
[2023-09-09 06:00] VITALS: BP 112/58; TEMP 97.7; O2SAT 92
[2023-09-09] MEDS: VANICREAM MOISTURIZING SKIN CREAM 113GM TUBE TOP SCH (20:20)
[2023-09-09 20:35] VITALS: BP 109/67; TEMP 98.3; O2SAT 90
[2023-09-10 06:16] VITALS: BP 105/53; TEMP 98.4; O2SAT 88
[2023-09-10 13:57] VITALS: BP 117/49; TEMP 98.8; O2SAT 91
[2023-09-11 04:00] VITALS: BP 124/56; TEMP 98.8; O2SAT 90
[2023-09-12 06:00] VITALS: BP 123/58; TEMP 98.1; O2SAT 89
[2023-09-13 06:00] VITALS: BP 125/65; TEMP 97.9; O2SAT 92
[2023-09-13] MEDS: CEPACOL LOZENGE PO PRN (16:13)
[2023-09-13 20:00] VITALS: BP 126/65; TEMP 98.2; O2SAT 90
[2023-09-13] MEDS: ANEXSIA, NORCO 7.5MG/325MG TABLET(HYDROCODONE/APAP) PO PRN (20:16)
[2023-09-14 06:20] VITALS: BP 120/66; TEMP 97.2; O2SAT 90
[2023-09-14] MEDS: MUPIROCIN 2% OINT 22 GM TUBE TOP SCH (12:36)
[2023-09-14 21:00] VITALS: BP 127/67; TEMP 98.8; O2SAT 92
[2023-09-15 05:00] VITALS: BP 124/61; TEMP 97.5; O2SAT 86
[2023-09-15] MEDS ORDERED: FERR324T2 PO (17:36)
[2023-09-16 05:26] VITALS: BP 122/61; TEMP 98.4; O2SAT 91
[2023-09-16 10:00] VITALS: BP 137/67; TEMP 97; O2SAT 94
[2023-09-17 05:31] VITALS: BP 118/59; TEMP 97.5; O2SAT 94
[2023-09-17 20:36] VITALS: BP 134/65; TEMP 98.8; O2SAT 89
[2023-09-18 05:33] VITALS: BP 136/66; TEMP 98.2; O2SAT 87
[2023-09-18 21:00] VITALS: BP 136/65; TEMP 98.2; O2SAT 91
[2023-09-19 06:00] VITALS: BP 140/76; TEMP 97.9; O2SAT 93
[2023-09-20 04:50] VITALS: BP 139/74; TEMP 98.2; O2SAT 90
[2023-09-21 04:42] VITALS: BP 124/72; TEMP 97.3; O2SAT 93
[2023-09-22 04:26] VITALS: BP 126/71; TEMP 98.8; O2SAT 88
[2023-09-23 06:30] VITALS: BP 114/58; TEMP 97.9; O2SAT 90
[2023-09-24 06:00] VITALS: BP 140/63; TEMP 97.3; O2SAT 95
[2023-09-25 04:00] VITALS: BP 154/73; TEMP 98.2; O2SAT 93
[2023-09-26 04:08] VITALS: BP 122/72; TEMP 97.9; O2SAT 89
[2023-09-26] MEDS: NICOTINE 14 MG/24 HR TRANSDERMAL TD SCH (08:26)
[2023-09-26] MEDS: FUROSEMIDE 40 MG TAB PO ONE (12:09)
[2023-09-27 04:23] VITALS: BP 122/72; TEMP 98.2; O2SAT 91
[2023-09-27] MEDS: MIRALAX *UNIT DOSE* 17GM PACKET PO PRN (13:30)
[2023-09-27] MEDS: SENOKOT S TAB PO SCH (21:01)
[2023-09-28 06:00] VITALS: BP 125/70; TEMP 98.2; O2SAT 94
[2023-09-29 06:00] VITALS: BP 129/69; TEMP 98.1; O2SAT 93
[2023-09-30 04:21] VITALS: O2SAT 96
[2023-09-30 06:23] VITALS: BP 156/72; TEMP 97.2; O2SAT 94
[2023-10-01 05:20] VITALS: BP 145/60; TEMP 98.1; O2SAT 91
[2023-10-01] MEDS: RIVAROXABAN 10MG TAB (XARELTO) PO SCH (17:00)
[2023-10-02 05:35] VITALS: BP 135/63; TEMP 98.4; O2SAT 90
[2023-10-03 06:00] VITALS: BP 138/68; TEMP 98.1; O2SAT 94
[2023-10-03 21:04] VITALS: BP 138/66; TEMP 98.4; O2SAT 95
[2023-10-04 04:00] VITALS: BP 122/64; TEMP 97.9; O2SAT 94
[2023-10-05 04:00] VITALS: BP 123/77; TEMP 97; O2SAT 93
[2023-10-05 06:30] VITALS: BP 118/68; TEMP 96.1; O2SAT 94
[2023-10-05 20:00] VITALS: O2SAT 96
[2023-10-06 04:44] VITALS: BP 143/67; TEMP 97.3; O2SAT 92
[2023-10-06 20:00] VITALS: O2SAT 96
[2023-10-07 04:02] VITALS: BP 141/69; TEMP 97.5; O2SAT 93
[2023-10-08 04:00] VITALS: BP 120/63; TEMP 98.1; O2SAT 97
[2023-10-09 19:15] VITALS: TEMP 98.2; O2SAT 96
[2023-10-09 20:00] VITALS: BP 141/68; TEMP 97.9; O2SAT 95
[2023-10-10 03:53] VITALS: BP 155/63; TEMP 98.1; O2SAT 94
[2023-10-11 03:49] VITALS: BP 136/63; TEMP 97.5; O2SAT 90
[2023-10-12 04:00] VITALS: BP 137/62; TEMP 97.5; O2SAT 94
[2023-10-12 14:17] LABS: BASO # 0.1 10^3/uL (0.0-0.2); BASO % 0.5 % (0.0-1.0); EOS # 0.2 10^3/uL (0.0-0.5); EOS % 1.8 % (0.0-3.0); HEMATOCRIT 40.9 % (42.0-52.0); HEMOGLOBIN 12.8 g/dl (13.5-17.5); LYMPH # 0.8 10^3/uL (1.5-5.0); LYMPH % 8.9 % (24.0-44.0); MEAN CORPUSCULAR HEMOGLOBIN 28.8 pg (27.0-33.0); MEAN CORPUSCULAR HGB CONC 31.3 g/dl (32.0-36.5); MEAN CORPUSCULAR VOLUME 92.1 fl (80.0-96.0); MONO # 0.6 10^3/uL (0.0-0.8); MONO % 6.3 % (2.0-8.0); NEUTROPHILS # 7.6 10^3/uL (1.5-8.5); NEUTROPHILS % 79.8 % (36.0-66.0); PLATELET COUNT, AUTOMATED 305 10^3/uL (150-450); RED BLOOD COUNT 4.44 10^6/uL (4.30-6.10); WHITE BLOOD COUNT 9.5 10^3/uL (4.0-10.0)
[2023-10-12 14:50] LABS: BLOOD UREA NITROGEN 12 MG/DL (9-23); CALCIUM LEVEL 9.7 MG/DL (8.5-10.1); CARBON DIOXIDE LEVEL 32 MMOL/L (20-31); CHLORIDE LEVEL 103 MMOL/L (98-107); CREATININE FOR GFR 0.61 MG/DL (0.70-1.30); GLOMERULAR FILTRATION RATE > 60.0 (>60); GLUCOSE, FASTING 132 MG/DL (60-100); MAGNESIUM LEVEL 1.9 MG/DL (1.8-2.4); POTASSIUM SERUM 3.8 MMOL/L (3.5-5.1); SODIUM LEVEL 140 MMOL/L (136-145)
[2023-10-12] MEDS: TORSEMIDE 20 MG TAB PO SCH (20:30)
[2023-10-13 04:00] VITALS: BP 127/61; TEMP 97; O2SAT 96
[2023-10-14 04:00] VITALS: BP 143/71; TEMP 97.2; O2SAT 93
[2023-10-15 06:37] VITALS: BP 140/59; TEMP 97.5; O2SAT 96
[2023-10-15 09:36] LABS: BLOOD UREA NITROGEN 11 MG/DL (9-23); CALCIUM LEVEL 9.3 MG/DL (8.5-10.1); CARBON DIOXIDE LEVEL 27 MMOL/L (20-31); CHLORIDE LEVEL 103 MMOL/L (98-107); GLOMERULAR FILTRATION RATE > 60.0 (>60); GLUCOSE, FASTING 122 MG/DL (60-100); MAGNESIUM LEVEL 1.8 MG/DL (1.8-2.4); POTASSIUM SERUM 3.6 MMOL/L (3.5-5.1); SODIUM LEVEL 141 MMOL/L (136-145)
[2023-10-15] MEDS: POTASSIUM CHLORIDE 10MEQ SR TABLET PO ONE (12:21)
[2023-10-15] MEDS: TORSEMIDE 20 MG TAB PO SCH (17:25)
[2023-10-16 04:52] VITALS: BP 135/72; TEMP 98.1; O2SAT 97
[2023-10-16 07:03] LABS: BLOOD UREA NITROGEN 12 MG/DL (9-23); CALCIUM LEVEL 9.1 MG/DL (8.5-10.1); CARBON DIOXIDE LEVEL 32 MMOL/L (20-31); CHLORIDE LEVEL 105 MMOL/L (98-107); CREATININE FOR GFR 0.67 MG/DL (0.70-1.30); GLOMERULAR FILTRATION RATE > 60.0 (>60); GLUCOSE, FASTING 119 MG/DL (60-100); POTASSIUM SERUM 3.7 MMOL/L (3.5-5.1); SODIUM LEVEL 141 MMOL/L (136-145)
[2023-10-17 04:10] VITALS: BP 101/64; TEMP 97.5; O2SAT 93
[2023-10-17 07:08] LABS: BLOOD UREA NITROGEN 12 MG/DL (9-23); CALCIUM LEVEL 9.4 MG/DL (8.5-10.1); CARBON DIOXIDE LEVEL 32 MMOL/L (20-31); CHLORIDE LEVEL 102 MMOL/L (98-107); CREATININE FOR GFR 0.69 MG/DL (0.70-1.30); GLOMERULAR FILTRATION RATE > 60.0 (>60); GLUCOSE, FASTING 117 MG/DL (60-100); MAGNESIUM LEVEL 1.8 MG/DL (1.8-2.4); POTASSIUM SERUM 3.4 MMOL/L (3.5-5.1); SODIUM LEVEL 140 MMOL/L (136-145)
[2023-10-17 08:51] VITALS: BP 143/80
[2023-10-17] MEDS: POTASSIUM CHLORIDE 10MEQ SR TABLET PO ONE (12:32)
[2023-10-17 17:16] VITALS: BP 143/79
[2023-10-18 05:00] VITALS: BP 135/70; TEMP 98.1; O2SAT 94
[2023-10-18 06:52] LABS: BLOOD UREA NITROGEN 13 MG/DL (9-23); CALCIUM LEVEL 9.3 MG/DL (8.5-10.1); CARBON DIOXIDE LEVEL 33 MMOL/L (20-31); CHLORIDE LEVEL 100 MMOL/L (98-107); CREATININE FOR GFR 0.74 MG/DL (0.70-1.30); GLOMERULAR FILTRATION RATE > 60.0 (>60); GLUCOSE, FASTING 121 MG/DL (60-100); MAGNESIUM LEVEL 1.8 MG/DL (1.8-2.4); POTASSIUM SERUM 3.6 MMOL/L (3.5-5.1); SODIUM LEVEL 138 MMOL/L (136-145)
[2023-10-18] MEDS: POTASSIUM CHLORIDE 10MEQ SR TABLET PO SCH (09:17)
[2023-10-18] MEDS: TORSEMIDE 20 MG TAB PO SCH (09:18)
[2023-10-19 03:42] VITALS: BP 132/66; TEMP 98.1; O2SAT 92
[2023-10-19 06:54] LABS: BLOOD UREA NITROGEN 14 MG/DL (9-23); CALCIUM LEVEL 9.3 MG/DL (8.5-10.1); CARBON DIOXIDE LEVEL 33 MMOL/L (20-31); CHLORIDE LEVEL 100 MMOL/L (98-107); CREATININE FOR GFR 0.69 MG/DL (0.70-1.30); GLOMERULAR FILTRATION RATE > 60.0 (>60); GLUCOSE, FASTING 117 MG/DL (60-100); MAGNESIUM LEVEL 1.8 MG/DL (1.8-2.4); POTASSIUM SERUM 3.7 MMOL/L (3.5-5.1); SODIUM LEVEL 138 MMOL/L (136-145)
[2023-10-20 03:42] VITALS: BP 137/60; TEMP 98.1; O2SAT 92
[2023-10-21 04:05] VITALS: BP 138/61; TEMP 98.8; O2SAT 93
[2023-10-21 06:19] LABS: BLOOD UREA NITROGEN 12 MG/DL (9-23); CALCIUM LEVEL 9.6 MG/DL (8.5-10.1); CARBON DIOXIDE LEVEL 31 MMOL/L (20-31); CHLORIDE LEVEL 103 MMOL/L (98-107); CREATININE FOR GFR 0.65 MG/DL (0.70-1.30); GLOMERULAR FILTRATION RATE > 60.0 (>60); GLUCOSE, FASTING 129 MG/DL (60-100); MAGNESIUM LEVEL 1.8 MG/DL (1.8-2.4); POTASSIUM SERUM 3.6 MMOL/L (3.5-5.1); SODIUM LEVEL 140 MMOL/L (136-145)
[2023-10-21 14:55] LABS: HEMATOCRIT 39.4 % (42.0-52.0); HEMOGLOBIN 12.4 g/dl (13.5-17.5); MEAN CORPUSCULAR HEMOGLOBIN 28.8 pg (27.0-33.0); MEAN CORPUSCULAR HGB CONC 31.5 g/dl (32.0-36.5); MEAN CORPUSCULAR VOLUME 91.4 fl (80.0-96.0); PLATELET COUNT, AUTOMATED 272 10^3/uL (150-450); RED BLOOD COUNT 4.31 10^6/uL (4.30-6.10); WHITE BLOOD COUNT 8.9 10^3/uL (4.0-10.0)
[2023-10-22 04:44] VITALS: BP 150/61; TEMP 97.9; O2SAT 92
[2023-10-23 04:21] VITALS: BP 142/63; TEMP 97.5; O2SAT 90
[2023-10-23 07:05] LABS: BLOOD UREA NITROGEN 13 MG/DL (9-23); CALCIUM LEVEL 9.6 MG/DL (8.5-10.1); CARBON DIOXIDE LEVEL 31 MMOL/L (20-31); CHLORIDE LEVEL 101 MMOL/L (98-107); CREATININE FOR GFR 0.65 MG/DL (0.70-1.30); GLOMERULAR FILTRATION RATE > 60.0 (>60); GLUCOSE, FASTING 111 MG/DL (60-100); MAGNESIUM LEVEL 1.9 MG/DL (1.8-2.4); POTASSIUM SERUM 3.5 MMOL/L (3.5-5.1); SODIUM LEVEL 138 MMOL/L (136-145)
[2023-10-24 04:37] VITALS: BP 133/66; TEMP 98.1; O2SAT 93
[2023-10-25 04:23] VITALS: BP 115/60; TEMP 98.1; O2SAT 95
[2023-10-25 06:16] LABS: BLOOD UREA NITROGEN 11 MG/DL (9-23); CALCIUM LEVEL 9.2 MG/DL (8.5-10.1); CARBON DIOXIDE LEVEL 31 MMOL/L (20-31); CHLORIDE LEVEL 104 MMOL/L (98-107); CREATININE FOR GFR 0.71 MG/DL (0.70-1.30); GLOMERULAR FILTRATION RATE > 60.0 (>60); GLUCOSE, FASTING 120 MG/DL (60-100); MAGNESIUM LEVEL 1.9 MG/DL (1.8-2.4); POTASSIUM SERUM 3.4 MMOL/L (3.5-5.1); SODIUM LEVEL 139 MMOL/L (136-145)
[2023-10-26 04:00] VITALS: BP 112/60; TEMP 98.2; O2SAT 94
[2023-10-27 00:06] LABS: APPEARANCE, URINE HAZY (CLEAR); BACTERIA, URINE AUTO 1+ (NEGATIVE); BILIRUBIN, URINE AUTO NEGATIVE (NEGATIVE); BLOOD, URINE BLOOD 1+ (NEGATIVE); CALCIUM OXALATE CRYSTALS SMALL; COLOR, URINE YELLOW (YELLOW); GLUCOSE, URINE (UA) AUTO NEGATIVE (NEGATIVE); KETONE, URINE AUTO NEGATIVE (NEGATIVE); LEUKOCYTE ESTERASE, URINE AUTO 2+ (NEGATIVE); MUCUS, URINE SMALL (NEGATIVE); NITRITE, URINE AUTO NEGATIVE (NEGATIVE); PROTEIN, URINE AUTO NEGATIVE (NEGATIVE); RBC, URINE AUTO 29 /HPF (0-3); SPECIFIC GRAVITY URINE AUTO 1.017 (1.002-1.035); SQUAMOUS EPITHELIAL CELL UR AU 3 /HPF (0-6); UROBILINOGEN, URINE AUTO 0.2 mg/dL (0.0-2.0); WBC, URINE AUTO 95 /HPF (0-3)
[2023-10-27] MEDS ORDERED: cefTRIAXone SOD 1 GM in DEXTROSE 5% (D5W) ADV/MINI-BAG 50 ML IV SCH (00:25)
[2023-10-27] MEDS: BACTRIM 160MG/800MG DS TAB PO SCH (02:38)
[2023-10-27 04:00] VITALS: BP 126/58; TEMP 97.3; O2SAT 95
[2023-10-27] MEDS ORDERED: BACTRIM 80MG/400MG TAB PO SCH (09:00)
[2023-10-28 04:00] VITALS: BP 142/70; TEMP 97.5; O2SAT 96
[2023-10-29 03:50] VITALS: BP 139/61; TEMP 97; O2SAT 94
[2023-10-29 17:08] VITALS: BP 148/78
[2023-10-30 04:00] VITALS: BP 114/64; TEMP 98.8; O2SAT 93
[2023-10-30 09:28] LABS: BASO % 0.5 % (0.0-1.0); EOS # 0.2 10^3/uL (0.0-0.5); EOS % 2.2 % (0.0-3.0); HEMATOCRIT 40.4 % (42.0-52.0); HEMOGLOBIN 12.7 g/dl (13.5-17.5); LYMPH # 1.2 10^3/uL (1.5-5.0); LYMPH % 13.8 % (24.0-44.0); MEAN CORPUSCULAR HEMOGLOBIN 28.7 pg (27.0-33.0); MEAN CORPUSCULAR HGB CONC 31.4 g/dl (32.0-36.5); MEAN CORPUSCULAR VOLUME 91.4 fl (80.0-96.0); MONO # 0.7 10^3/uL (0.0-0.8); MONO % 7.9 % (2.0-8.0); NEUTROPHILS # 6.2 10^3/uL (1.5-8.5); NEUTROPHILS % 73.4 % (36.0-66.0); PLATELET COUNT, AUTOMATED 261 10^3/uL (150-450); RED BLOOD COUNT 4.42 10^6/uL (4.30-6.10); WHITE BLOOD COUNT 8.5 10^3/uL (4.0-10.0)
[2023-10-30 09:34] LABS: ERYTHROCYTE SEDIMENTATION RATE 85 mm/hr (0-15)
[2023-10-30 09:51] LABS: BLOOD UREA NITROGEN 12 MG/DL (9-23); CALCIUM LEVEL 9.7 MG/DL (8.5-10.1); CARBON DIOXIDE LEVEL 30 MMOL/L (20-31); CHLORIDE LEVEL 103 MMOL/L (98-107); CREATININE FOR GFR 0.66 MG/DL (0.70-1.30); GLOMERULAR FILTRATION RATE > 60.0 (>60); GLUCOSE, FASTING 99 MG/DL (60-100); POTASSIUM SERUM 3.8 MMOL/L (3.5-5.1); SODIUM LEVEL 140 MMOL/L (136-145)
[2023-10-30 09:57] LABS: PROCALCITONIN 0.06 ng/ml
[2023-10-30] MEDS ORDERED: SEMA1PEN2 SQ (10:48)
[2023-10-30] MEDS ORDERED: SEMA0.257 SQ (11:52)
[2023-10-30] MEDS: NYSTATIN 100,000 UNITS/GM TOPICAL PWD 15GM TOP SCH (13:22)
[2023-10-30] MEDS: BACITRACIN OINTMENT 30GM TUBE TOP SCH (17:32)
[2023-10-30 21:25] VITALS: TEMP 98.1
[2023-10-31 03:20] VITALS: BP 130/54; TEMP 97.5; O2SAT 95
[2023-10-31 06:58] LABS: BASO % 0.5 % (0.0-1.0); EOS # 0.2 10^3/uL (0.0-0.5); EOS % 2.3 % (0.0-3.0); HEMATOCRIT 38.5 % (42.0-52.0); HEMOGLOBIN 11.7 g/dl (13.5-17.5); LYMPH # 1.4 10^3/uL (1.5-5.0); LYMPH % 16.2 % (24.0-44.0); MEAN CORPUSCULAR HEMOGLOBIN 27.9 pg (27.0-33.0); MEAN CORPUSCULAR HGB CONC 30.4 g/dl (32.0-36.5); MEAN CORPUSCULAR VOLUME 91.9 fl (80.0-96.0); MONO # 0.7 10^3/uL (0.0-0.8); MONO % 7.4 % (2.0-8.0); NEUTROPHILS # 6.3 10^3/uL (1.5-8.5); NEUTROPHILS % 71.7 % (36.0-66.0); PLATELET COUNT, AUTOMATED 268 10^3/uL (150-450); RED BLOOD COUNT 4.19 10^6/uL (4.30-6.10); WHITE BLOOD COUNT 8.8 10^3/uL (4.0-10.0)
[2023-10-31 07:22] LABS: BLOOD UREA NITROGEN 14 MG/DL (9-23); CALCIUM LEVEL 9.6 MG/DL (8.5-10.1); CARBON DIOXIDE LEVEL 31 MMOL/L (20-31); CHLORIDE LEVEL 101 MMOL/L (98-107); GLOMERULAR FILTRATION RATE > 60.0 (>60); GLUCOSE, FASTING 104 MG/DL (60-100); POTASSIUM SERUM 3.8 MMOL/L (3.5-5.1); SODIUM LEVEL 136 MMOL/L (136-145)
[2023-11-01 04:00] VITALS: BP 140/67; TEMP 98.1; O2SAT 94
[2023-11-01 06:33] LABS: BASO % 0.4 % (0.0-1.0); EOS # 0.2 10^3/uL (0.0-0.5); EOS % 2.2 % (0.0-3.0); HEMATOCRIT 38.9 % (42.0-52.0); HEMOGLOBIN 11.8 g/dl (13.5-17.5); LYMPH # 1.2 10^3/uL (1.5-5.0); MEAN CORPUSCULAR HEMOGLOBIN 27.7 pg (27.0-33.0); MEAN CORPUSCULAR HGB CONC 30.3 g/dl (32.0-36.5); MEAN CORPUSCULAR VOLUME 91.3 fl (80.0-96.0); MONO # 0.7 10^3/uL (0.0-0.8); MONO % 7.9 % (2.0-8.0); NEUTROPHILS # 6.3 10^3/uL (1.5-8.5); NEUTROPHILS % 73.4 % (36.0-66.0); PLATELET COUNT, AUTOMATED 246 10^3/uL (150-450); RED BLOOD COUNT 4.26 10^6/uL (4.30-6.10); WHITE BLOOD COUNT 8.5 10^3/uL (4.0-10.0)
[2023-11-01 07:03] LABS: BLOOD UREA NITROGEN 14 MG/DL (9-23); CALCIUM LEVEL 9.2 MG/DL (8.5-10.1); CARBON DIOXIDE LEVEL 32 MMOL/L (20-31); CHLORIDE LEVEL 103 MMOL/L (98-107); CREATININE FOR GFR 0.71 MG/DL (0.70-1.30); GLOMERULAR FILTRATION RATE > 60.0 (>60); GLUCOSE, FASTING 105 MG/DL (60-100); POTASSIUM SERUM 3.8 MMOL/L (3.5-5.1); SODIUM LEVEL 140 MMOL/L (136-145)
[2023-11-02 04:00] VITALS: BP 145/64; TEMP 97.5; O2SAT 91
[2023-11-02 09:33] LABS: BASO % 0.5 % (0.0-1.0); EOS # 0.2 10^3/uL (0.0-0.5); EOS % 2.1 % (0.0-3.0); HEMATOCRIT 38.3 % (42.0-52.0); HEMOGLOBIN 11.9 g/dl (13.5-17.5); LYMPH # 1.1 10^3/uL (1.5-5.0); LYMPH % 13.2 % (24.0-44.0); MEAN CORPUSCULAR HEMOGLOBIN 28.2 pg (27.0-33.0); MEAN CORPUSCULAR HGB CONC 31.1 g/dl (32.0-36.5); MEAN CORPUSCULAR VOLUME 90.8 fl (80.0-96.0); MONO # 0.5 10^3/uL (0.0-0.8); MONO % 6.2 % (2.0-8.0); NEUTROPHILS # 6.6 10^3/uL (1.5-8.5); NEUTROPHILS % 76.6 % (36.0-66.0); PLATELET COUNT, AUTOMATED 264 10^3/uL (150-450); RED BLOOD COUNT 4.22 10^6/uL (4.30-6.10); WHITE BLOOD COUNT 8.6 10^3/uL (4.0-10.0)
[2023-11-02 09:59] LABS: BLOOD UREA NITROGEN 13 MG/DL (9-23); CALCIUM LEVEL 9.2 MG/DL (8.5-10.1); CARBON DIOXIDE LEVEL 32 MMOL/L (20-31); CHLORIDE LEVEL 101 MMOL/L (98-107); GLOMERULAR FILTRATION RATE > 60.0 (>60); GLUCOSE, FASTING 98 MG/DL (60-100); POTASSIUM SERUM 3.8 MMOL/L (3.5-5.1); SODIUM LEVEL 136 MMOL/L (136-145)
[2023-11-03 04:00] VITALS: BP 137/66; TEMP 97.5; O2SAT 94
[2023-11-03 06:04] LABS: BASO % 0.5 % (0.0-1.0); EOS # 0.2 10^3/uL (0.0-0.5); HEMATOCRIT 37.3 % (42.0-52.0); HEMOGLOBIN 11.5 g/dl (13.5-17.5); LYMPH # 1.2 10^3/uL (1.5-5.0); LYMPH % 14.1 % (24.0-44.0); MEAN CORPUSCULAR HEMOGLOBIN 27.9 pg (27.0-33.0); MEAN CORPUSCULAR HGB CONC 30.8 g/dl (32.0-36.5); MEAN CORPUSCULAR VOLUME 90.5 fl (80.0-96.0); MONO # 0.6 10^3/uL (0.0-0.8); MONO % 6.7 % (2.0-8.0); NEUTROPHILS # 6.5 10^3/uL (1.5-8.5); NEUTROPHILS % 75.2 % (36.0-66.0); PLATELET COUNT, AUTOMATED 268 10^3/uL (150-450); RED BLOOD COUNT 4.12 10^6/uL (4.30-6.10); WHITE BLOOD COUNT 8.6 10^3/uL (4.0-10.0)
[2023-11-03 06:23] LABS: BLOOD UREA NITROGEN 13 MG/DL (9-23); CALCIUM LEVEL 9.1 MG/DL (8.5-10.1); CARBON DIOXIDE LEVEL 32 MMOL/L (20-31); CHLORIDE LEVEL 101 MMOL/L (98-107); CREATININE FOR GFR 0.79 MG/DL (0.70-1.30); GLOMERULAR FILTRATION RATE > 60.0 (>60); GLUCOSE, FASTING 110 MG/DL (60-100); POTASSIUM SERUM 3.6 MMOL/L (3.5-5.1); SODIUM LEVEL 137 MMOL/L (136-145)
[2023-11-04 07:17] LABS: BASO % 0.5 % (0.0-1.0); EOS # 0.1 10^3/uL (0.0-0.5); EOS % 1.1 % (0.0-3.0); HEMATOCRIT 37.3 % (42.0-52.0); HEMOGLOBIN 11.7 g/dl (13.5-17.5); LYMPH # 0.5 10^3/uL (1.5-5.0); LYMPH % 8.2 % (24.0-44.0); MEAN CORPUSCULAR HEMOGLOBIN 28.3 pg (27.0-33.0); MEAN CORPUSCULAR HGB CONC 31.4 g/dl (32.0-36.5); MEAN CORPUSCULAR VOLUME 90.3 fl (80.0-96.0); MONO # 0.7 10^3/uL (0.0-0.8); MONO % 11.7 % (2.0-8.0); NEUTROPHILS # 4.6 10^3/uL (1.5-8.5); NEUTROPHILS % 74.7 % (36.0-66.0); PLATELET COUNT, AUTOMATED 230 10^3/uL (150-450); RED BLOOD COUNT 4.13 10^6/uL (4.30-6.10); WHITE BLOOD COUNT 6.1 10^3/uL (4.0-10.0)
[2023-11-04 07:44] LABS: BLOOD UREA NITROGEN 13 MG/DL (9-23); CALCIUM LEVEL 8.9 MG/DL (8.5-10.1); CARBON DIOXIDE LEVEL 33 MMOL/L (20-31); CHLORIDE LEVEL 103 MMOL/L (98-107); CREATININE FOR GFR 0.75 MG/DL (0.70-1.30); GLOMERULAR FILTRATION RATE > 60.0 (>60); GLUCOSE, FASTING 100 MG/DL (60-100); POTASSIUM SERUM 3.7 MMOL/L (3.5-5.1); SODIUM LEVEL 139 MMOL/L (136-145)
[2023-11-04 09:00] VITALS: BP 139/72; TEMP 98.1; O2SAT 95
[2023-11-04] MEDS ORDERED: ENTER DRUG NAME HERE (PATIENT'S OWN MED) SC SCH (14:00)
[2023-11-05 03:56] VITALS: BP 137/70; TEMP 98.1; O2SAT 96
[2023-11-06 06:35] VITALS: BP 144/60; TEMP 98.1; O2SAT 95
[2023-11-07 05:58] VITALS: BP 124/63; TEMP 97.3; O2SAT 94
[2023-11-07 12:00] VITALS: BP 96/57; TEMP 97.5; O2SAT 95
[2023-11-07] MEDS: SODIUM CHLORIDE NASAL 0.65% SPRAY BTL (OCEAN) PRN (16:16)
[2023-11-08 03:52] VITALS: BP 134/63; TEMP 97.7; O2SAT 91
[2023-11-09 03:54] VITALS: BP 131/61; TEMP 97.9; O2SAT 95
[2023-11-10 03:59] VITALS: BP 138/61; TEMP 98.1; O2SAT 95
[2023-11-10 12:00] VITALS: BP 136/65; TEMP 97.5; O2SAT 93
[2023-11-11 04:36] VITALS: BP 123/63; TEMP 97.9; O2SAT 94
[2023-11-12 03:30] VITALS: BP 130/64; TEMP 97.9; O2SAT 100
[2023-11-12 09:27] LABS: IONIZED CALCIUM 4.5 MG/DL (4.5-5.3)
[2023-11-12 09:35] LABS: HEMATOCRIT 42.6 % (42.0-52.0); HEMOGLOBIN 12.9 g/dl (13.5-17.5); MEAN CORPUSCULAR HEMOGLOBIN 28.1 pg (27.0-33.0); MEAN CORPUSCULAR HGB CONC 30.3 g/dl (32.0-36.5); MEAN CORPUSCULAR VOLUME 92.8 fl (80.0-96.0); PLATELET COUNT, AUTOMATED 254 10^3/uL (150-450); RED BLOOD COUNT 4.59 10^6/uL (4.30-6.10); WHITE BLOOD COUNT 8.5 10^3/uL (4.0-10.0)
[2023-11-12 09:58] LABS: BLOOD UREA NITROGEN 13 MG/DL (9-23); CALCIUM LEVEL 9.1 MG/DL (8.5-10.1); CARBON DIOXIDE LEVEL 34 MMOL/L (20-31); CHLORIDE LEVEL 101 MMOL/L (98-107); CREATININE FOR GFR 0.69 MG/DL (0.70-1.30); GLOMERULAR FILTRATION RATE > 60.0 (>60); GLUCOSE, FASTING 107 MG/DL (60-100); POTASSIUM SERUM 3.8 MMOL/L (3.5-5.1); SODIUM LEVEL 140 MMOL/L (136-145)
[2023-11-13 03:30] VITALS: BP 130/65; TEMP 97.7; O2SAT 95
[2023-11-13 04:00] VITALS: BP 130/65; TEMP 97.7; O2SAT 95
[2023-11-14 04:00] VITALS: BP 134/78; TEMP 97.7; O2SAT 99
[2023-11-14] MEDS: CIPRODEX OTIC SUSP 7.5ML AS SCH (21:10)
[2023-11-14] MEDS: TRIAMCINOLONE ACETONIDE 0.025% 80GM CREAM TOP SCH (21:11)
[2023-11-15 03:52] VITALS: BP 129/75; TEMP 98.6; O2SAT 99
[2023-11-15] MEDS: MUPIROCIN 2% OINT 22 GM TUBE TOP SCH (11:51)
[2023-11-15 17:35] VITALS: BP 134/72
[2023-11-16 06:27] VITALS: BP 136/70; TEMP 98.1; O2SAT 94
[2023-11-16 22:02] LABS: KETONE, URINE AUTO RFX NEGATIVE (NEGATIVE); LEUKOCYTE ESTERASE UR AUTO RFX 3+ (NEGATIVE); MUCUS, URINE RFX SMALL (NEGATIVE); NITRITE, URINE AUTO RFX NEGATIVE (NEGATIVE); RBC, URINE AUTO RFX 20 /HPF (0-3); SQUAM EPITHELIAL CELL UR AURFX 0 /HPF (0-6); WBC, URINE AUTO RFX 49 /HPF (0-3)
[2023-11-16 22:51] LABS: BASO % 0.2 % (0.0-1.0); EOS # 0.2 10^3/uL (0.0-0.5); EOS % 1.6 % (0.0-3.0); HEMATOCRIT 38.4 % (42.0-52.0); HEMOGLOBIN 11.9 g/dl (13.5-17.5); LYMPH # 1.2 10^3/uL (1.5-5.0); LYMPH % 13.1 % (24.0-44.0); MEAN CORPUSCULAR HEMOGLOBIN 27.9 pg (27.0-33.0); MEAN CORPUSCULAR VOLUME 89.9 fl (80.0-96.0); MONO # 0.7 10^3/uL (0.0-0.8); MONO % 7.7 % (2.0-8.0); NEUTROPHILS % 75.7 % (36.0-66.0); PLATELET COUNT, AUTOMATED 270 10^3/uL (150-450); RED BLOOD COUNT 4.27 10^6/uL (4.30-6.10); WHITE BLOOD COUNT 9.2 10^3/uL (4.0-10.0)
[2023-11-16 23:26] LABS: ALKALINE PHOSPHATASE 83 U/L (46-116); ALT/SGPT 27 U/L (7.0-40); AST/SGOT 10 U/L (<34); BILIRUBIN,TOTAL 0.2 MG/DL (0.3-1.2); BLOOD UREA NITROGEN 13 MG/DL (9-23); CALCIUM LEVEL 9.2 MG/DL (8.5-10.1); CARBON DIOXIDE LEVEL 33 MMOL/L (20-31); CHLORIDE LEVEL 100 MMOL/L (98-107); CREATININE FOR GFR 0.82 MG/DL (0.70-1.30); GLOMERULAR FILTRATION RATE > 60.0 (>60); GLUCOSE, FASTING 129 MG/DL (60-100); MAGNESIUM LEVEL 1.9 MG/DL (1.8-2.4); POTASSIUM SERUM 3.7 MMOL/L (3.5-5.1); SODIUM LEVEL 136 MMOL/L (136-145); TOTAL PROTEIN 6.4 G/DL (5.7-8.2)
[2023-11-16 23:37] LABS: PROCALCITONIN 0.08 ng/ml
[2023-11-16] MEDS: BACTRIM 160MG/800MG DS TAB PO SCH (23:40)
[2023-11-17 06:16] VITALS: BP 121/57; TEMP 97.9; O2SAT 94; O2SAT 97
[2023-11-17] MEDS: CARBAMIDE PEROXIDE 6.5% OTIC SOLN 15ML AD SCH (21:38)
[2023-11-18 06:11] VITALS: BP 129/55; TEMP 97.9; O2SAT 92
[2023-11-19] MEDS ORDERED: POTASSIUM CHLORIDE 10MEQ SR TABLET As Ordered ONE (08:20)
[2023-11-19] MEDS ORDERED: BACLOFEN 10 MG TAB As Ordered ONE (08:20)
[2023-11-19] MEDS ORDERED: OMEPRAZOLE 20MG CAP As Ordered ONE (08:20)
[2023-11-19] MEDS ORDERED: lamoTRIgine 100MG TAB As Ordered ONE (08:21)
[2023-11-19] MEDS ORDERED: SERTRALINE 100 MG TAB As Ordered ONE (08:21)
[2023-11-19] MEDS ORDERED: CETIRIZINE (ZyrTEC) 10 MG TAB As Ordered ONE (08:21)
[2023-11-19] MEDS ORDERED: amLODIPine 5 MG TAB As Ordered ONE (08:21)
[2023-11-19] MEDS ORDERED: TORSEMIDE 20 MG TAB As Ordered ONE (08:21)
[2023-11-19] MEDS ORDERED: SPIRONOLACTONE 50 MG TAB As Ordered ONE (08:21)
[2023-11-19] MEDS ORDERED: BACTRIM 160MG/800MG DS TAB As Ordered ONE (08:22)
[2023-11-20 03:24] VITALS: BP 130/62; TEMP 97.2; O2SAT 93
[2023-11-21 03:50] VITALS: BP 121/60; TEMP 98.1; O2SAT 91
[2023-11-22 05:19] VITALS: BP 108/51; TEMP 98.3; O2SAT 92
[2023-11-23 06:35] VITALS: BP 137/62; TEMP 98.6; O2SAT 92
[2023-11-24 06:49] VITALS: BP 162/70; TEMP 98.6; O2SAT 94
[2023-11-25 06:22] VITALS: BP 140/62; TEMP 97.7; O2SAT 98
[2023-11-26 04:00] VITALS: BP 127/60; TEMP 97.7; O2SAT 93
[2023-11-27 04:00] VITALS: BP 145/68; TEMP 97.5; O2SAT 94
[2023-11-28 02:18] VITALS: BP 146/70; TEMP 97.5; O2SAT 97
[2023-11-29 04:12] VITALS: BP 131/60; TEMP 97.9; O2SAT 94
[2023-11-30 03:26] VITALS: BP 129/58; TEMP 97.9; O2SAT 94
[2023-12-01 04:17] VITALS: BP 131/60; TEMP 97.7; O2SAT 92
[2023-12-02 04:00] VITALS: BP 131/62; TEMP 98.1; O2SAT 98
[2023-12-02] MEDS ORDERED: TIRZ2.5P SQ (13:41)
[2023-12-03 04:20] VITALS: BP 132/60; TEMP 97.5; O2SAT 98
[2023-12-04 04:42] VITALS: BP 136/63; TEMP 98.1; O2SAT 96
[2023-12-04 11:36] LABS: BASO % 0.3 % (0.0-1.0); EOS # 0.2 10^3/uL (0.0-0.5); EOS % 2.2 % (0.0-3.0); HEMATOCRIT 37.4 % (42.0-52.0); HEMOGLOBIN 11.6 g/dl (13.5-17.5); LYMPH # 1.1 10^3/uL (1.5-5.0); LYMPH % 14.2 % (24.0-44.0); MEAN CORPUSCULAR HEMOGLOBIN 27.5 pg (27.0-33.0); MEAN CORPUSCULAR VOLUME 88.6 fl (80.0-96.0); MONO # 0.6 10^3/uL (0.0-0.8); MONO % 7.2 % (2.0-8.0); NEUTROPHILS # 5.7 10^3/uL (1.5-8.5); NEUTROPHILS % 74.5 % (36.0-66.0); PLATELET COUNT, AUTOMATED 251 10^3/uL (150-450); RED BLOOD COUNT 4.22 10^6/uL (4.30-6.10); WHITE BLOOD COUNT 7.7 10^3/uL (4.0-10.0)
[2023-12-04 11:58] LABS: BLOOD UREA NITROGEN 15 MG/DL (9-23); CARBON DIOXIDE LEVEL 31 MMOL/L (20-31); CHLORIDE LEVEL 102 MMOL/L (98-107); CREATININE FOR GFR 0.66 MG/DL (0.70-1.30); GLOMERULAR FILTRATION RATE > 60.0 (>60); GLUCOSE, FASTING 121 MG/DL (60-100); POTASSIUM SERUM 3.6 MMOL/L (3.5-5.1); SODIUM LEVEL 138 MMOL/L (136-145)
[2023-12-04 12:10] LABS: PROCALCITONIN 0.04 ng/ml
[2023-12-04 13:11] LABS: KETONE, URINE AUTO RFX NEGATIVE (NEGATIVE); MUCUS, URINE RFX SMALL (NEGATIVE); RBC, URINE AUTO RFX 18 /HPF (0-3); SQUAM EPITHELIAL CELL UR AURFX 4 /HPF (0-6)
[2023-12-04 13:12] LABS: LEUKOCYTE ESTERASE UR AUTO RFX 2+ (NEGATIVE); NITRITE, URINE AUTO RFX POSITIVE (NEGATIVE); WBC, URINE AUTO RFX 103 /HPF (0-3)
[2023-12-05 04:04] VITALS: BP 134/60; TEMP 98.2; O2SAT 93
[2023-12-05] MEDS: CEFDINIR 300 MG CAP (OMNICEF) PO SCH (12:40)
[2023-12-06 04:38] VITALS: BP 132/60; TEMP 98.1; O2SAT 97
[2023-12-08 04:21] VITALS: BP 136/63; TEMP 98.2; O2SAT 98
[2023-12-09 04:42] VITALS: BP 138/63; TEMP 98.2; O2SAT 95
[2023-12-09] MEDS: MOUNJARO 2.5 MG SQ SCH (09:22)
[2023-12-09] MEDS: diphenhydrAMINE 50MG CAP PO ONE (18:37)
[2023-12-10 04:54] VITALS: BP 152/65; TEMP 98.1; O2SAT 94
[2023-12-11 04:10] VITALS: BP 141/68; TEMP 97.7; O2SAT 97
[2023-12-12 04:20] VITALS: BP 117/59; TEMP 97.9; O2SAT 90
[2023-12-13 04:00] VITALS: BP 144/70; TEMP 98.1; O2SAT 97
[2023-12-13 20:29] VITALS: BP 146/67; O2SAT 95
[2023-12-13 21:30] VITALS: O2SAT 95
[2023-12-14 04:00] VITALS: BP 130/66; TEMP 97.3; O2SAT 94
[2023-12-15 04:00] VITALS: BP 134/62; TEMP 97.8; O2SAT 95
[2023-12-16 04:00] VITALS: BP 134/60; TEMP 97.6; O2SAT 98
[2023-12-17 04:00] VITALS: BP 131/63; TEMP 97.9; O2SAT 98
[2023-12-17 08:45] VITALS: BP 136/62
[2023-12-18 03:56] VITALS: BP 132/65; TEMP 97.9; O2SAT 94
[2023-12-18 18:56] LABS: KETONE, URINE AUTO RFX NEGATIVE (NEGATIVE); MUCUS, URINE RFX SMALL (NEGATIVE); RBC, URINE AUTO RFX 10 /HPF (0-3); SQUAM EPITHELIAL CELL UR AURFX 1 /HPF (0-6)
[2023-12-18 18:57] LABS: LEUKOCYTE ESTERASE UR AUTO RFX 2+ (NEGATIVE); NITRITE, URINE AUTO RFX POSITIVE (NEGATIVE); WBC, URINE AUTO RFX 51 /HPF (0-3)
[2023-12-19 05:00] VITALS: BP 134/95; TEMP 97.9; O2SAT 94
[2023-12-19] MEDS: CEFDINIR 300 MG CAP (OMNICEF) PO SCH (09:01)
[2023-12-20 04:30] VITALS: BP 127/60; TEMP 97; O2SAT 95
[2023-12-21 04:00] VITALS: BP 132/59; TEMP 97.7; O2SAT 94
[2023-12-21] MEDS: LINEZOLID 600MG TABLET (ZYVOX) PO SCH (20:51)
[2023-12-22 04:00] VITALS: BP 137/65; TEMP 98.2; O2SAT 98
[2023-12-22] MEDS: SERTRALINE HCL 50 MG TAB PO SCH (08:07)
[2023-12-23 03:43] VITALS: BP 137/64; TEMP 97.9; O2SAT 95
[2023-12-23 08:26] VITALS: BP 138/65
[2023-12-24 04:24] VITALS: BP 150/66; TEMP 97; O2SAT 99
[2023-12-25 04:00] VITALS: BP 149/65; TEMP 97.2; O2SAT 97
[2023-12-26 04:00] VITALS: BP 145/65; TEMP 97.7; O2SAT 95
[2023-12-26 14:26] LABS: KETONE, URINE AUTO RFX NEGATIVE (NEGATIVE); NITRITE, URINE AUTO RFX NEGATIVE (NEGATIVE); RBC, URINE AUTO RFX 9 /HPF (0-3); SQUAM EPITHELIAL CELL UR AURFX 2 /HPF (0-6)
[2023-12-26 14:28] LABS: LEUKOCYTE ESTERASE UR AUTO RFX 3+ (NEGATIVE); WBC, URINE AUTO RFX 55 /HPF (0-3)
[2023-12-26] MEDS: CEFDINIR 300 MG CAP (OMNICEF) PO ONE (17:55)
[2023-12-26] MEDS: CEFDINIR 300 MG CAP (OMNICEF) PO SCH (20:13)
[2023-12-27 04:01] VITALS: BP 117/53; TEMP 98.2; O2SAT 95
[2023-12-28 03:45] VITALS: BP 131/52; TEMP 97.5; O2SAT 96
[2023-12-29 04:38] VITALS: BP 130/65; TEMP 98.4; O2SAT 95
[2023-12-29] MEDS: LORazepam 0.5 MG TAB PO PRN (20:11)
[2023-12-30 03:25] VITALS: BP 126/67; TEMP 98.2; O2SAT 97
[2023-12-30] MEDS ORDERED: TIRZ5PEN SQ (09:31)
[2023-12-30 13:52] LABS: HEMATOCRIT 38.4 % (42.0-52.0); MEAN CORPUSCULAR HEMOGLOBIN 27.3 pg (27.0-33.0); MEAN CORPUSCULAR HGB CONC 31.3 g/dl (32.0-36.5); MEAN CORPUSCULAR VOLUME 87.5 fl (80.0-96.0); PLATELET COUNT, AUTOMATED 255 10^3/uL (150-450); RED BLOOD COUNT 4.39 10^6/uL (4.30-6.10); WHITE BLOOD COUNT 8.7 10^3/uL (4.0-10.0)
[2023-12-30 14:24] LABS: BLOOD UREA NITROGEN 15 MG/DL (9-23); CALCIUM LEVEL 9.4 MG/DL (8.5-10.1); CARBON DIOXIDE LEVEL 33 MMOL/L (20-31); CHLORIDE LEVEL 103 MMOL/L (98-107); CREATININE FOR GFR 0.65 MG/DL (0.70-1.30); GLOMERULAR FILTRATION RATE > 60.0 (>60); GLUCOSE, FASTING 110 MG/DL (60-100); POTASSIUM SERUM 3.8 MMOL/L (3.5-5.1); SODIUM LEVEL 139 MMOL/L (136-145)
[2023-12-31 04:00] VITALS: BP 121/69; TEMP 97.7; O2SAT 96
[2024-01-01 04:00] VITALS: BP 137/76; TEMP 98.2; O2SAT 93
[2024-01-02 04:00] VITALS: BP 131/66; TEMP 97.5; O2SAT 95
[2024-01-03 06:30] VITALS: BP 131/64; TEMP 98.2; O2SAT 96
[2024-01-04 04:00] VITALS: BP 140/66; TEMP 98.2; O2SAT 98
[2024-01-05 03:55] VITALS: BP 127/57; TEMP 98.1; O2SAT 98
[2024-01-06 04:00] VITALS: BP 131/58; TEMP 98.1; O2SAT 98
[2024-01-06] MEDS: TIRZEPATIDE 5 MG/0.5 ML SC SCH (09:18)
[2024-01-07 06:15] VITALS: BP 128/57; TEMP 98.6; O2SAT 93
[2024-01-08 04:00] VITALS: BP 147/63; TEMP 97.9; O2SAT 98
[2024-01-09 04:00] VITALS: BP 137/59; TEMP 98.1; O2SAT 97
[2024-01-09 15:31] LABS: KETONE, URINE AUTO RFX NEGATIVE (NEGATIVE); LEUKOCYTE ESTERASE UR AUTO RFX 3+ (NEGATIVE); NITRITE, URINE AUTO RFX POSITIVE (NEGATIVE); RBC, URINE AUTO RFX TNTC /HPF (0-3); SQUAM EPITHELIAL CELL UR AURFX 0 /HPF (0-6); WBC, URINE AUTO RFX 159 /HPF (0-3)
[2024-01-10 03:56] VITALS: BP 125/70; TEMP 97.9; O2SAT 96
[2024-01-10] MEDS: cefTRIAXone SOD 1 GM in DEXTROSE 5% (D5W) ADV/MINI-BAG 50 ML IV SCH (21:30)
[2024-01-10] MEDS: PHENAZOPYRIDINE 100 MG TAB PO SCH (21:34)
[2024-01-11 04:00] VITALS: BP 128/65; TEMP 98.1; O2SAT 96
[2024-01-12 04:00] VITALS: BP 139/67; TEMP 97.5; O2SAT 96
[2024-01-12] MEDS ORDERED: ENTER DRUG NAME HERE (PATIENT'S OWN MED) SQ SCH (09:00)
[2024-01-12] MEDS: LevoFLOXacin 750 MG TABLET PO SCH (09:43)
[2024-01-12] MEDS: LACTOBACILLUS ACIDOPHILUS CAP (BACID) PO SCH (13:45)
[2024-01-13 04:17] VITALS: BP 137/67; TEMP 98.6; O2SAT 98
[2024-01-14 04:00] VITALS: BP 129/64; TEMP 98.1; O2SAT 99
[2024-01-14] MEDS: PERMETHRIN 5% CREAM 60 GM TOP ONE (18:04)
[2024-01-15 04:00] VITALS: BP 134/53; TEMP 97.3; O2SAT 97
[2024-01-15 09:02] VITALS: BP 134/53
[2024-01-17 03:51] VITALS: BP 122/67; TEMP 97.7; O2SAT 97
[2024-01-18 04:30] VITALS: BP 104/53; TEMP 97.7; O2SAT 94
[2024-01-18 10:45] VITALS: BP 127/67
[2024-01-18] MEDS: metOLazone 5 MG TAB PO ONE (11:59)
[2024-01-18] MEDS: FUROSEMIDE injection 250 MG in D5W 225 ML IV SCH (13:36)
[2024-01-18 18:13] VITALS: BP 127/81; TEMP 97.5; O2SAT 94
[2024-01-18 20:44] LABS: IONIZED CALCIUM 4.2 MG/DL (4.5-5.3)
[2024-01-18 21:22] LABS: BLOOD UREA NITROGEN 20 MG/DL (9-23); CALCIUM LEVEL 10.1 MG/DL (8.5-10.1); CARBON DIOXIDE LEVEL 33 MMOL/L (20-31); CHLORIDE LEVEL 98 MMOL/L (98-107); CREATININE FOR GFR 0.65 MG/DL (0.70-1.30); GLOMERULAR FILTRATION RATE > 60.0 (>60); GLUCOSE, FASTING 136 MG/DL (60-100); MAGNESIUM LEVEL 1.9 MG/DL (1.8-2.4); POTASSIUM SERUM 3.5 MMOL/L (3.5-5.1); SODIUM LEVEL 137 MMOL/L (136-145)
[2024-01-19 04:20] VITALS: BP 126/72; TEMP 97.5; O2SAT 96
[2024-01-19 07:22] LABS: ALBUMIN 3.6 G/DL (3.2-5.2); BLOOD UREA NITROGEN 20 MG/DL (9-23); CALCIUM LEVEL 10.2 MG/DL (8.5-10.1); CARBON DIOXIDE LEVEL 38 MMOL/L (20-31); CHLORIDE LEVEL 91 MMOL/L (98-107); GLOMERULAR FILTRATION RATE > 60.0 (>60); GLUCOSE, FASTING 122 MG/DL (60-100); MAGNESIUM LEVEL 1.8 MG/DL (1.8-2.4); POTASSIUM SERUM 2.7 MMOL/L (3.5-5.1); SODIUM LEVEL 136 MMOL/L (136-145)
[2024-01-19] MEDS ORDERED: CALCIUM GLUCONATE 1,000 MG in DEXTROSE 5% (D5W) MINI-BAG PLU 100 ML IV ONE (07:30)
[2024-01-19] MEDS ORDERED: FUROSEMIDE injection 250 MG in D5W 225 ML IV SCH (07:30)
[2024-01-19 08:49] VITALS: BP 121/75
[2024-01-19] MEDS: MAG SULF 1GM/100ML (MAG RUN) 1 GM in IV 1 EA IV ONE (08:57)
[2024-01-19] MEDS: POTASSIUM CHLORIDE 10MEQ SR TABLET PO SCH (09:00)
[2024-01-19 12:00] VITALS: BP 122/62; TEMP 98.1; O2SAT 92
[2024-01-19 13:56] LABS: IONIZED CALCIUM 4.1 MG/DL (4.5-5.3)
[2024-01-19 14:27] LABS: MAGNESIUM LEVEL 1.8 MG/DL (1.8-2.4)
[2024-01-19 20:45] VITALS: BP 126/63; TEMP 98.1; O2SAT 92
[2024-01-20 04:00] VITALS: BP 129/64; TEMP 97.3; O2SAT 94
[2024-01-20 06:58] LABS: ALBUMIN 3.3 G/DL (3.2-5.2); BLOOD UREA NITROGEN 19 MG/DL (9-23); CALCIUM LEVEL 9.8 MG/DL (8.5-10.1); CARBON DIOXIDE LEVEL 39 MMOL/L (20-31); CHLORIDE LEVEL 90 MMOL/L (98-107); CREATININE FOR GFR 0.64 MG/DL (0.70-1.30); GLOMERULAR FILTRATION RATE > 60.0 (>60); GLUCOSE, FASTING 136 MG/DL (60-100); MAGNESIUM LEVEL 1.9 MG/DL (1.8-2.4); POTASSIUM SERUM 2.9 MMOL/L (3.5-5.1); SODIUM LEVEL 135 MMOL/L (136-145)
[2024-01-20] MEDS: MAG SULF 1GM/100ML (MAG RUN) 1 GM in IV 1 EA IV ONE ×2 (08:50→21:21)
[2024-01-20] MEDS: POTASSIUM CHLORIDE 10MEQ SR TABLET PO ONE (08:51)
[2024-01-20 09:00] VITALS: BP 133/65
[2024-01-20 12:00] VITALS: BP 131/66; TEMP 97.9; O2SAT 93
[2024-01-20] MEDS ORDERED: CEPHALEXIN 500 MG CAP PO SCH (12:00)
[2024-01-20] MEDS: POTASSIUM CHLORIDE 10MEQ SR TABLET PO SCH ×2 (14:05→18:05)
[2024-01-20] MEDS: MAGNESIUM CITRATE 300ML BTL PO ONE (15:36)
[2024-01-20 16:17] LABS: C REACTIVE PROTEIN QUANTITATIV 7.6 MG/DL (<1.0)
[2024-01-20 16:26] LABS: PROCALCITONIN 0.11 ng/ml
[2024-01-20 16:33] LABS: MAGNESIUM LEVEL 1.9 MG/DL (1.8-2.4); POTASSIUM SERUM 2.8 MMOL/L (3.5-5.1)
[2024-01-20] MEDS: CEPHALEXIN 500 MG CAP PO SCH (17:10)
[2024-01-20] MEDS: FLUZONE VACCINE TRIVALENT PF(2024-25) 0.5ML SYRINGE IM.IMMUN ONE (17:12)
[2024-01-20] MEDS: KCL 10MEQ/100ML SWI (KRUN) 10 MEQ in IV 1 EA IV SCH (18:04)
[2024-01-20 21:14] VITALS: BP 131/65; TEMP 98.1; O2SAT 96
[2024-01-21 01:36] LABS: POTASSIUM SERUM 3.2 MMOL/L (3.5-5.1)
[2024-01-21] MEDS: KCL 10MEQ/100ML SWI (KRUN) 10 MEQ in IV 1 EA IV SCH (03:46)
[2024-01-21 04:00] VITALS: BP 131/68; TEMP 97.7; O2SAT 92
[2024-01-21 07:23] LABS: ALBUMIN 3.2 G/DL (3.2-5.2); BLOOD UREA NITROGEN 18 MG/DL (9-23); CALCIUM LEVEL 10.1 MG/DL (8.5-10.1); CARBON DIOXIDE LEVEL > 40.0 MMOL/L (20-31); CHLORIDE LEVEL 96 MMOL/L (98-107); GLOMERULAR FILTRATION RATE > 60.0 (>60); GLUCOSE, FASTING 127 MG/DL (60-100); POTASSIUM SERUM 3.1 MMOL/L (3.5-5.1); SODIUM LEVEL 136 MMOL/L (136-145)
[2024-01-21] MEDS: POTASSIUM CHLORIDE 10MEQ SR TABLET PO SCH (08:08)
[2024-01-21] MEDS: MOM 30ML SUSPENSION UDC PO PRN (08:08)
[2024-01-21 09:00] VITALS: BP 136/69
[2024-01-21] MEDS ORDERED: POTASSIUM CHLORIDE 10MEQ SR TABLET PO SCH (09:00)
[2024-01-21] MEDS: TORSEMIDE 20 MG TAB PO SCH (09:02)
[2024-01-21 12:00] VITALS: BP 111/78; TEMP 98.2; O2SAT 93
[2024-01-21] MEDS: PERMETHRIN 5% CREAM 60 GM TOP ONE (18:13)
[2024-01-22 04:00] VITALS: BP 128/76; TEMP 97.7; O2SAT 91
[2024-01-22 07:09] LABS: ALBUMIN 3.3 G/DL (3.2-5.2); BLOOD UREA NITROGEN 18 MG/DL (9-23); CALCIUM LEVEL 10.2 MG/DL (8.5-10.1); CARBON DIOXIDE LEVEL 37 MMOL/L (20-31); CHLORIDE LEVEL 94 MMOL/L (98-107); CREATININE FOR GFR 0.65 MG/DL (0.70-1.30); GLOMERULAR FILTRATION RATE > 60.0 (>60); GLUCOSE, FASTING 124 MG/DL (60-100); MAGNESIUM LEVEL 2.4 MG/DL (1.8-2.4); POTASSIUM SERUM 3.6 MMOL/L (3.5-5.1); SODIUM LEVEL 136 MMOL/L (136-145)
[2024-01-23 03:00] VITALS: BP 125/66; TEMP 98.2; O2SAT 94
[2024-01-23 06:33] LABS: ALBUMIN 3.1 G/DL (3.2-5.2); BLOOD UREA NITROGEN 19 MG/DL (9-23); CALCIUM LEVEL 9.5 MG/DL (8.5-10.1); CARBON DIOXIDE LEVEL 36 MMOL/L (20-31); CHLORIDE LEVEL 98 MMOL/L (98-107); CREATININE FOR GFR 0.63 MG/DL (0.70-1.30); GLOMERULAR FILTRATION RATE > 60.0 (>60); GLUCOSE, FASTING 132 MG/DL (60-100); MAGNESIUM LEVEL 2.2 MG/DL (1.8-2.4); POTASSIUM SERUM 3.7 MMOL/L (3.5-5.1); SODIUM LEVEL 136 MMOL/L (136-145)
[2024-01-23 20:40] VITALS: BP 123/61; TEMP 98.2; O2SAT 93
[2024-01-24 04:30] VITALS: BP 133/60; TEMP 97.5; O2SAT 98
[2024-01-24 07:19] LABS: BLOOD UREA NITROGEN 18 MG/DL (9-23); CALCIUM LEVEL 9.3 MG/DL (8.5-10.1); CARBON DIOXIDE LEVEL 35 MMOL/L (20-31); CHLORIDE LEVEL 99 MMOL/L (98-107); CREATININE FOR GFR 0.63 MG/DL (0.70-1.30); GLOMERULAR FILTRATION RATE > 60.0 (>60); GLUCOSE, FASTING 114 MG/DL (60-100); MAGNESIUM LEVEL 2.2 MG/DL (1.8-2.4); POTASSIUM SERUM 3.9 MMOL/L (3.5-5.1); SODIUM LEVEL 138 MMOL/L (136-145)
[2024-01-24 10:45] LABS: BLOOD UREA NITROGEN 16 MG/DL (9-23); CARBON DIOXIDE LEVEL 35 MMOL/L (20-31); CHLORIDE LEVEL 99 MMOL/L (98-107); CREATININE FOR GFR 0.63 MG/DL (0.70-1.30); GLOMERULAR FILTRATION RATE > 60.0 (>60); GLUCOSE, FASTING 135 MG/DL (60-100); POTASSIUM SERUM 3.8 MMOL/L (3.5-5.1); SODIUM LEVEL 137 MMOL/L (136-145)
[2024-01-25 03:22] VITALS: BP 153/75; TEMP 98.8; O2SAT 94
[2024-01-25] MEDS ORDERED: ONDANSETRON 4MG 2ML VIAL IV ONE (04:05)
[2024-01-25] MEDS: ONDANSETRON 4MG ORAL DISINTEGRATING TAB PO ONE (04:31)
[2024-01-25 05:38] LABS: BLOOD UREA NITROGEN 18 MG/DL (9-23); CALCIUM LEVEL 9.4 MG/DL (8.5-10.1); CARBON DIOXIDE LEVEL 32 MMOL/L (20-31); CHLORIDE LEVEL 100 MMOL/L (98-107); CREATININE FOR GFR 0.61 MG/DL (0.70-1.30); GLOMERULAR FILTRATION RATE > 60.0 (>60); GLUCOSE, FASTING 144 MG/DL (60-100); MAGNESIUM LEVEL 2.1 MG/DL (1.8-2.4); POTASSIUM SERUM 4.2 MMOL/L (3.5-5.1); SODIUM LEVEL 139 MMOL/L (136-145)
[2024-01-26 04:00] VITALS: BP 136/79; TEMP 97.9; O2SAT 97
[2024-01-27 03:29] VITALS: BP 107/67; TEMP 98.2; O2SAT 92
[2024-01-27 09:31] LABS: BLOOD UREA NITROGEN 16 MG/DL (9-23); CALCIUM LEVEL 9.6 MG/DL (8.5-10.1); CARBON DIOXIDE LEVEL 33 MMOL/L (20-31); CHLORIDE LEVEL 103 MMOL/L (98-107); CREATININE FOR GFR 0.64 MG/DL (0.70-1.30); GLOMERULAR FILTRATION RATE > 60.0 (>60); GLUCOSE, FASTING 105 MG/DL (60-100); POTASSIUM SERUM 4.2 MMOL/L (3.5-5.1); SODIUM LEVEL 139 MMOL/L (136-145)
[2024-01-28 03:16] VITALS: BP 133/68; TEMP 98.2; O2SAT 95
[2024-01-28] MEDS ORDERED: TIRZ5PEN SQ (08:50)
[2024-01-28] MEDS: metOLazone 5 MG TAB PO ONE (18:57)
[2024-01-28] MEDS: TORSEMIDE 20 MG TAB PO ONE (20:43)
[2024-01-29 04:00] VITALS: BP 129/68; TEMP 98.1; O2SAT 96
[2024-01-29 06:47] LABS: IONIZED CALCIUM 4.8 MG/DL (4.5-5.3)
[2024-01-29 07:32] LABS: BLOOD UREA NITROGEN 19 MG/DL (9-23); CALCIUM LEVEL 9.9 MG/DL (8.5-10.1); CARBON DIOXIDE LEVEL 34 MMOL/L (20-31); CHLORIDE LEVEL 100 MMOL/L (98-107); CREATININE FOR GFR 0.69 MG/DL (0.70-1.30); GLOMERULAR FILTRATION RATE > 60.0 (>60); GLUCOSE, FASTING 116 MG/DL (60-100); POTASSIUM SERUM 3.2 MMOL/L (3.5-5.1); SODIUM LEVEL 139 MMOL/L (136-145)
[2024-01-29] MEDS: TORSEMIDE 20 MG TAB PO SCH (09:28)
[2024-01-29 09:34] VITALS: BP 112/68
[2024-01-30 04:00] VITALS: BP 119/68; TEMP 98.2; O2SAT 97
[2024-01-30 06:10] LABS: IONIZED CALCIUM 4.6 MG/DL (4.5-5.3)
[2024-01-30 06:40] LABS: BLOOD UREA NITROGEN 23 MG/DL (9-23); CALCIUM LEVEL 9.8 MG/DL (8.5-10.1); CARBON DIOXIDE LEVEL 37 MMOL/L (20-31); CHLORIDE LEVEL 93 MMOL/L (98-107); GLOMERULAR FILTRATION RATE > 60.0 (>60); GLUCOSE, FASTING 121 MG/DL (60-100); MAGNESIUM LEVEL 1.8 MG/DL (1.8-2.4); SODIUM LEVEL 137 MMOL/L (136-145)
[2024-01-30 09:11] VITALS: BP 140/69
[2024-01-30] MEDS: POTASSIUM CHLORIDE 10MEQ SR TABLET PO ONE (12:16)
[2024-01-30 20:22] VITALS: O2SAT 95
[2024-01-31 04:00] VITALS: BP 136/69; TEMP 98.2; O2SAT 95
[2024-01-31 06:02] LABS: IONIZED CALCIUM 4.6 MG/DL (4.5-5.3)
[2024-01-31 06:32] LABS: BLOOD UREA NITROGEN 19 MG/DL (9-23); CALCIUM LEVEL 9.2 MG/DL (8.5-10.1); CARBON DIOXIDE LEVEL 37 MMOL/L (20-31); CHLORIDE LEVEL 96 MMOL/L (98-107); CREATININE FOR GFR 0.67 MG/DL (0.70-1.30); GLOMERULAR FILTRATION RATE > 60.0 (>60); GLUCOSE, FASTING 137 MG/DL (60-100); MAGNESIUM LEVEL 1.8 MG/DL (1.8-2.4); SODIUM LEVEL 136 MMOL/L (136-145)
[2024-01-31] MEDS: POTASSIUM CHLORIDE 10MEQ SR TABLET PO SCH (17:31)
[2024-01-31] MEDS: POTASSIUM CHLORIDE 10MEQ SR TABLET PO ONE (17:32)
[2024-02-01 03:49] VITALS: BP 143/73; TEMP 98.1; O2SAT 96
[2024-02-01 04:00] VITALS: BP 143/73; TEMP 98.1; O2SAT 96
[2024-02-01 06:20] LABS: IONIZED CALCIUM 4.6 MG/DL (4.5-5.3)
[2024-02-01 06:53] LABS: BLOOD UREA NITROGEN 20 MG/DL (9-23); CALCIUM LEVEL 9.8 MG/DL (8.5-10.1); CARBON DIOXIDE LEVEL 36 MMOL/L (20-31); CHLORIDE LEVEL 97 MMOL/L (98-107); CREATININE FOR GFR 0.61 MG/DL (0.70-1.30); GLOMERULAR FILTRATION RATE > 60.0 (>60); GLUCOSE, FASTING 115 MG/DL (60-100); MAGNESIUM LEVEL 2.1 MG/DL (1.8-2.4); POTASSIUM SERUM 3.4 MMOL/L (3.5-5.1); SODIUM LEVEL 138 MMOL/L (136-145)
[2024-02-01 09:19] VITALS: BP 105/67
[2024-02-01 17:45] VITALS: BP 121/70
[2024-02-02 03:44] VITALS: BP 129/70; TEMP 97.9; O2SAT 99
[2024-02-02 05:21] LABS: IONIZED CALCIUM 4.6 MG/DL (4.5-5.3)
[2024-02-02 05:55] LABS: BLOOD UREA NITROGEN 18 MG/DL (9-23); CALCIUM LEVEL 9.4 MG/DL (8.5-10.1); CARBON DIOXIDE LEVEL 33 MMOL/L (20-31); CHLORIDE LEVEL 100 MMOL/L (98-107); CREATININE FOR GFR 0.62 MG/DL (0.70-1.30); GLOMERULAR FILTRATION RATE > 60.0 (>60); GLUCOSE, FASTING 123 MG/DL (60-100); MAGNESIUM LEVEL 2.1 MG/DL (1.8-2.4); POTASSIUM SERUM 3.8 MMOL/L (3.5-5.1); SODIUM LEVEL 137 MMOL/L (136-145)
[2024-02-03 04:00] VITALS: BP 131/72; TEMP 97.9; O2SAT 94
[2024-02-03] MEDS ORDERED: ENTER DRUG NAME HERE (PATIENT'S OWN MED) SQ SCH (09:00)
[2024-02-03 09:15] LABS: BLOOD UREA NITROGEN 19 MG/DL (9-23); CALCIUM LEVEL 9.8 MG/DL (8.5-10.1); CARBON DIOXIDE LEVEL 32 MMOL/L (20-31); CHLORIDE LEVEL 103 MMOL/L (98-107); CREATININE FOR GFR 0.65 MG/DL (0.70-1.30); GLOMERULAR FILTRATION RATE > 60.0 (>60); GLUCOSE, FASTING 117 MG/DL (60-100); POTASSIUM SERUM 4.1 MMOL/L (3.5-5.1); SODIUM LEVEL 141 MMOL/L (136-145)
[2024-02-03 10:18] VITALS: BP 143/77
[2024-02-03 17:39] LABS: KETONE, URINE AUTO RFX NEGATIVE (NEGATIVE); NITRITE, URINE AUTO RFX NEGATIVE (NEGATIVE); RBC, URINE AUTO RFX 2 /HPF (0-3); SQUAM EPITHELIAL CELL UR AURFX 0 /HPF (0-6)
[2024-02-03 17:48] LABS: LEUKOCYTE ESTERASE UR AUTO RFX 2+ (NEGATIVE); WBC, URINE AUTO RFX 14 /HPF (0-3)
[2024-02-04 04:03] VITALS: BP 124/69; TEMP 97.9; O2SAT 100
[2024-02-05 04:00] VITALS: BP 130/67; TEMP 97.2; O2SAT 98
[2024-02-06 04:00] VITALS: BP 135/69; TEMP 97.5; O2SAT 97
[2024-02-06] MEDS: SALIVA SUBSTITUTE(MOUTHKOTE) BTL MT PRN (07:35)
[2024-02-07 04:12] VITALS: BP 127/68; TEMP 97.5; O2SAT 98
[2024-02-07 10:02] LABS: BLOOD UREA NITROGEN 16 MG/DL (9-23); CALCIUM LEVEL 9.3 MG/DL (8.5-10.1); CARBON DIOXIDE LEVEL 32 MMOL/L (20-31); CHLORIDE LEVEL 102 MMOL/L (98-107); CREATININE FOR GFR 0.65 MG/DL (0.70-1.30); GLOMERULAR FILTRATION RATE > 60.0 (>60); GLUCOSE, FASTING 107 MG/DL (60-100); POTASSIUM SERUM 4.2 MMOL/L (3.5-5.1); SODIUM LEVEL 142 MMOL/L (136-145)
[2024-02-07] MEDS: CEFDINIR 300 MG CAP (OMNICEF) PO SCH (13:00)
[2024-02-08 04:00] VITALS: BP 115/61; TEMP 97.2; O2SAT 98
[2024-02-08 17:00] VITALS: BP 119/62
[2024-02-09 03:50] VITALS: BP 124/63; TEMP 98.2; O2SAT 97
[2024-02-09] MEDS: metroNIDAZOLE (FLAGYL) 500MG TABLET PO SCH (14:54)
[2024-02-09 16:49] LABS: BLOOD UREA NITROGEN 14 MG/DL (9-23); CALCIUM LEVEL 9.4 MG/DL (8.5-10.1); CARBON DIOXIDE LEVEL 31 MMOL/L (20-31); CHLORIDE LEVEL 102 MMOL/L (98-107); CREATININE FOR GFR 0.63 MG/DL (0.70-1.30); GLOMERULAR FILTRATION RATE > 60.0 (>60); GLUCOSE, FASTING 129 MG/DL (60-100); MAGNESIUM LEVEL 1.8 MG/DL (1.8-2.4); POTASSIUM SERUM 3.6 MMOL/L (3.5-5.1); SODIUM LEVEL 140 MMOL/L (136-145)
[2024-02-09] MEDS: PENCICLOVIR 1% CREAM 5GM TOP SCH (17:42)
[2024-02-09 18:50] VITALS: BP 127/65; TEMP 98.4; O2SAT 92
[2024-02-09 20:22] LABS: VENOUS BASE EXCESS -0.2 (-2.0-2.0); VENOUS HCO3 25.5 MMOL/L (23.0-27.0); VENOUS O2 SATURATION 88.5 % (60.0-80.0); VENOUS PARTIAL PRESSURE O2 58.6 mmHg (30.0-50.0); VENOUS PH 7.362 UNITS (7.330-7.430); VENOUS STANDARD HCO3 24.1 MMOL/L; VENOUS TOTAL CO2 26.9 MMOL/L (24.0-28.0)
[2024-02-09 20:43] LABS: D-DIMER QUANT 0.33 ug/mL (<0.5); INR 1.47; PARTIAL THROMBOPLASTIN TIME 40.2 SECONDS (24.8-34.2); PROTHROMBIN TIME 17.4 SECONDS (12.5-14.5)
[2024-02-09 22:55] LABS: BASO % 0.2 % (0.0-1.0); EOS # 0.2 10^3/uL (0.0-0.5); EOS % 2.4 % (0.0-3.0); HEMATOCRIT 36.5 % (42.0-52.0); HEMOGLOBIN 11.5 g/dl (13.5-17.5); LYMPH # 1.3 10^3/uL (1.5-5.0); LYMPH % 14.4 % (24.0-44.0); MEAN CORPUSCULAR HEMOGLOBIN 27.3 pg (27.0-33.0); MEAN CORPUSCULAR HGB CONC 31.5 g/dl (32.0-36.5); MEAN CORPUSCULAR VOLUME 86.5 fl (80.0-96.0); MONO # 0.7 10^3/uL (0.0-0.8); MONO % 8.3 % (2.0-8.0); NEUTROPHILS # 6.5 10^3/uL (1.5-8.5); NEUTROPHILS % 72.9 % (36.0-66.0); PLATELET COUNT, AUTOMATED 258 10^3/uL (150-450); RED BLOOD COUNT 4.22 10^6/uL (4.30-6.10); WHITE BLOOD COUNT 8.9 10^3/uL (4.0-10.0)
[2024-02-09 23:41] LABS: ALBUMIN 2.9 G/DL (3.2-5.2); ALKALINE PHOSPHATASE 80 U/L (46-116); ALT/SGPT 23 U/L (7.0-40); AST/SGOT 12 U/L (<34); BILIRUBIN,DIRECT < 0.1 MG/DL (<0.4); BILIRUBIN,TOTAL 0.2 MG/DL (0.3-1.2); BLOOD UREA NITROGEN 17 MG/DL (9-23); CALCIUM LEVEL 9.4 MG/DL (8.5-10.1); CARBON DIOXIDE LEVEL 31 MMOL/L (20-31); CHLORIDE LEVEL 102 MMOL/L (98-107); CK-MB VALUE MASS < 1.0 NG/ML (<3.6); CREATININE FOR GFR 0.66 MG/DL (0.70-1.30); GLOMERULAR FILTRATION RATE > 60.0 (>60); GLUCOSE, FASTING 131 MG/DL (60-100); MAGNESIUM LEVEL 1.8 MG/DL (1.8-2.4); POTASSIUM SERUM 3.5 MMOL/L (3.5-5.1); SODIUM LEVEL 140 MMOL/L (136-145); TOTAL PROTEIN 6.7 G/DL (5.7-8.2)
[2024-02-09 23:49] LABS: PROCALCITONIN 0.08 ng/ml
[2024-02-09 23:52] LABS: CPK CREATINE PHOSPHOKINASE 20 U/L (46-171)
[2024-02-10 04:15] VITALS: BP 126/65; TEMP 97.5; O2SAT 97
[2024-02-10 09:08] LABS: BLOOD UREA NITROGEN 14 MG/DL (9-23); CALCIUM LEVEL 9.5 MG/DL (8.5-10.1); CARBON DIOXIDE LEVEL 30 MMOL/L (20-31); CHLORIDE LEVEL 102 MMOL/L (98-107); GLOMERULAR FILTRATION RATE > 60.0 (>60); GLUCOSE, FASTING 109 MG/DL (60-100); POTASSIUM SERUM 3.6 MMOL/L (3.5-5.1); SODIUM LEVEL 139 MMOL/L (136-145)
[2024-02-11 04:00] VITALS: BP 119/65; TEMP 97.9; O2SAT 97
[2024-02-12 04:00] VITALS: BP 142/67; TEMP 98.1; O2SAT 97
[2024-02-13 04:00] VITALS: BP 141/64; TEMP 97.9; O2SAT 96
[2024-02-13] MEDS: CHLORHEXIDINE GLUCONATE 0.12 % 15ML UDC (PERIDEX ORAL RINSE) MT SCH (10:30)
[2024-02-13] MEDS: BENZOCAINE 20% GEL 9GM TUBE (ANBESOL MAX STRENGTH) MT SCH (10:30)
[2024-02-14 04:00] VITALS: BP 115/62; TEMP 97.9; O2SAT 97
[2024-02-14] MEDS ORDERED: SERTRALINE 100 MG TAB PO SCH (09:00)
[2024-02-14] MEDS ORDERED: SERTRALINE HCL 50 MG TAB PO SCH (09:00)
[2024-02-14] MEDS: SERTRALINE 100 MG TAB PO SCH (10:02)
[2024-02-14 10:57] LABS: BLOOD UREA NITROGEN 16 MG/DL (9-23); CALCIUM LEVEL 9.8 MG/DL (8.5-10.1); CARBON DIOXIDE LEVEL 33 MMOL/L (20-31); CHLORIDE LEVEL 101 MMOL/L (98-107); CREATININE FOR GFR 0.62 MG/DL (0.70-1.30); GLOMERULAR FILTRATION RATE > 60.0 (>60); GLUCOSE, FASTING 150 MG/DL (60-100); POTASSIUM SERUM 3.6 MMOL/L (3.5-5.1); SODIUM LEVEL 139 MMOL/L (136-145)
[2024-02-15 04:00] VITALS: BP 118/62; TEMP 98.1; O2SAT 97
[2024-02-16 03:41] VITALS: BP 154/71; TEMP 98.1; O2SAT 97
[2024-02-17 04:20] VITALS: BP 137/73; TEMP 98.1; O2SAT 96
[2024-02-17 07:44] LABS: BLOOD UREA NITROGEN 15 MG/DL (9-23); CALCIUM LEVEL 9.4 MG/DL (8.5-10.1); CARBON DIOXIDE LEVEL 34 MMOL/L (20-31); CHLORIDE LEVEL 102 MMOL/L (98-107); CREATININE FOR GFR 0.62 MG/DL (0.70-1.30); GLOMERULAR FILTRATION RATE > 60.0 (>60); GLUCOSE, FASTING 121 MG/DL (60-100); POTASSIUM SERUM 3.7 MMOL/L (3.5-5.1); SODIUM LEVEL 139 MMOL/L (136-145)
[2024-02-18 04:33] VITALS: BP 118/67; TEMP 99.1; O2SAT 96
[2024-02-19 04:43] VITALS: BP 123/65; TEMP 97.7; O2SAT 96
[2024-02-20 04:00] VITALS: BP 132/60; TEMP 97.9; O2SAT 98
[2024-02-21 03:32] VITALS: BP 132/61; TEMP 97.7; O2SAT 99
[2024-02-21 07:24] LABS: BLOOD UREA NITROGEN 13 MG/DL (9-23); CALCIUM LEVEL 10.1 MG/DL (8.5-10.1); CARBON DIOXIDE LEVEL 33 MMOL/L (20-31); CHLORIDE LEVEL 105 MMOL/L (98-107); CREATININE FOR GFR 0.67 MG/DL (0.70-1.30); GLOMERULAR FILTRATION RATE > 60.0 (>60); GLUCOSE, FASTING 102 MG/DL (60-100); POTASSIUM SERUM 3.7 MMOL/L (3.5-5.1); SODIUM LEVEL 142 MMOL/L (136-145)
[2024-02-22 04:24] VITALS: BP 131/65; TEMP 97.9; O2SAT 93
[2024-02-23 04:05] VITALS: BP 125/57; TEMP 97.5; O2SAT 93
[2024-02-23 08:33] VITALS: BP 122/57
[2024-02-24 04:33] VITALS: BP 130/70; TEMP 96.6; O2SAT 94
[2024-02-25 04:00] VITALS: BP 121/66; TEMP 98.1; O2SAT 99
[2024-02-25 09:52] VITALS: BP 120/82; TEMP 97.9; O2SAT 95
[2024-02-25 14:00] VITALS: BP 128/72; TEMP 97.8; O2SAT 97
[2024-02-26 04:58] VITALS: BP 122/63; TEMP 97.5; O2SAT 94
[2024-02-26 08:53] VITALS: BP 122/64
[2024-02-27 04:00] VITALS: BP 125/56; TEMP 98.1; O2SAT 92
[2024-02-27 17:01] LABS: BLOOD UREA NITROGEN 13 MG/DL (9-23); CALCIUM LEVEL 9.4 MG/DL (8.5-10.1); CARBON DIOXIDE LEVEL 35 MMOL/L (20-31); CHLORIDE LEVEL 104 MMOL/L (98-107); CREATININE FOR GFR 0.68 MG/DL (0.70-1.30); GLOMERULAR FILTRATION RATE > 60.0 (>60); GLUCOSE, FASTING 119 MG/DL (60-100); POTASSIUM SERUM 3.8 MMOL/L (3.5-5.1); SODIUM LEVEL 141 MMOL/L (136-145)
[2024-02-28 04:20] VITALS: BP 122/57; TEMP 97.5; O2SAT 94
[2024-02-29 03:30] VITALS: BP 121/57; TEMP 97.3; O2SAT 94
[2024-02-29] MEDS: HYDROCORTISONE 1% CREAM 30GM TOP SCH (20:10)
[2024-03-01 03:46] VITALS: BP 125/57; TEMP 97.5; O2SAT 94
[2024-03-02 03:30] VITALS: BP 125/58; TEMP 97.3; O2SAT 94
[2024-03-02] MEDS ORDERED: TIRZ5PEN SQ (11:37)
[2024-03-03 03:43] VITALS: BP 134/61; TEMP 97.9; O2SAT 97
[2024-03-03] MEDS: ACETAMINOPHEN 325 MG TAB PO PRN (17:26)
[2024-03-04 04:17] VITALS: BP 130/60; TEMP 97.9; O2SAT 96
[2024-03-04 09:21] LABS: HEMATOCRIT 38.5 % (42.0-52.0); MEAN CORPUSCULAR HGB CONC 31.2 g/dl (32.0-36.5); MEAN CORPUSCULAR VOLUME 86.7 fl (80.0-96.0); PLATELET COUNT, AUTOMATED 278 10^3/uL (150-450); RED BLOOD COUNT 4.44 10^6/uL (4.30-6.10); WHITE BLOOD COUNT 8.8 10^3/uL (4.0-10.0)
[2024-03-04 09:48] LABS: ALKALINE PHOSPHATASE 80 U/L (40-129); ALT/SGPT 22 U/L (7.0-40); AST/SGOT 16 U/L (<34); BILIRUBIN,TOTAL 0.2 MG/DL (0.3-1.2); BLOOD UREA NITROGEN 13 MG/DL (9-23); CALCIUM LEVEL 9.9 MG/DL (8.5-10.1); CARBON DIOXIDE LEVEL 31 MMOL/L (20-31); CHLORIDE LEVEL 100 MMOL/L (98-107); CREATININE FOR GFR 0.61 MG/DL (0.70-1.30); GLOMERULAR FILTRATION RATE > 60.0 (>60); GLUCOSE, FASTING 95 MG/DL (60-100); SODIUM LEVEL 137 MMOL/L (136-145); TOTAL PROTEIN 7.1 G/DL (5.7-8.2)
[2024-03-05 04:00] VITALS: BP 135/62; TEMP 97.9; O2SAT 93
[2024-03-06 05:00] VITALS: BP 132/62; TEMP 97.9; O2SAT 93
[2024-03-07 04:00] VITALS: BP 129/65; TEMP 97.2; O2SAT 95
[2024-03-08 03:57] VITALS: BP 118/48; TEMP 97.5; O2SAT 96
[2024-03-09 04:00] VITALS: BP 117/49; TEMP 97.7; O2SAT 99
[2024-03-10 04:00] VITALS: BP 141/69; TEMP 98.1; O2SAT 99
[2024-03-10 08:55] VITALS: BP 131/62
[2024-03-10 17:05] VITALS: BP 134/64
[2024-03-11 03:48] VITALS: BP 116/56; TEMP 97.2; O2SAT 94
[2024-03-12 04:09] VITALS: BP 131/64; TEMP 97.9; O2SAT 99
[2024-03-12 18:59] LABS: KETONE, URINE AUTO RFX NEGATIVE (NEGATIVE); MUCUS, URINE RFX SMALL (NEGATIVE); NITRITE, URINE AUTO RFX NEGATIVE (NEGATIVE); RBC, URINE AUTO RFX 38 /HPF (0-3); SQUAM EPITHELIAL CELL UR AURFX 0 /HPF (0-6); YEAST LIKE CELL URINE AUTO RFX SMALL
[2024-03-12 19:18] LABS: LEUKOCYTE ESTERASE UR AUTO RFX 3+ (NEGATIVE); WBC, URINE AUTO RFX 57 /HPF (0-3)
[2024-03-13 04:52] VITALS: BP 119/63; TEMP 97.9; O2SAT 96
[2024-03-13 08:23] VITALS: BP 134/62
[2024-03-13 08:27] VITALS: BP 139/64
[2024-03-14 04:00] VITALS: BP 125/58; TEMP 97.4; O2SAT 94
[2024-03-14 08:59] VITALS: BP 133/70
[2024-03-14 17:11] VITALS: BP 133/71
[2024-03-15 04:30] VITALS: BP 130/63; TEMP 97.5; O2SAT 97
[2024-03-15] MEDS ORDERED: CIPROFLOXACIN 500MG TABLET PO SCH (06:00)
[2024-03-15] MEDS: CIPROFLOXACIN 250MG TAB PO SCH (09:37)
[2024-03-16 04:00] VITALS: BP 140/64; TEMP 97.5; O2SAT 94
[2024-03-17 04:00] VITALS: BP 119/63; TEMP 98.1; O2SAT 94
[2024-03-18 04:00] VITALS: BP 125/68; TEMP 97.9; O2SAT 96
[2024-03-19 04:50] VITALS: BP 115/64; TEMP 97.9; O2SAT 96
[2024-03-20 04:41] VITALS: BP 119/59; TEMP 98.1; O2SAT 94
[2024-03-21 04:53] VITALS: BP 119/54; TEMP 97.3; O2SAT 95
[2024-03-22 04:00] VITALS: BP 128/62; TEMP 97.5; O2SAT 99
[2024-03-22 09:13] VITALS: BP 123/58
[2024-03-23 04:00] VITALS: BP 131/65; TEMP 97.9; O2SAT 96
[2024-03-24 04:00] VITALS: BP 132/65; TEMP 97.9; O2SAT 96
[2024-03-25 04:41] VITALS: BP 120/57; TEMP 97.7; O2SAT 93
[2024-03-26 06:01] VITALS: BP 134/71; TEMP 97.9; O2SAT 100
[2024-03-26 12:59] LABS: KETONE, URINE AUTO RFX NEGATIVE (NEGATIVE); MUCUS, URINE RFX SMALL (NEGATIVE); RBC, URINE AUTO RFX 3 /HPF (0-3); SQUAM EPITHELIAL CELL UR AURFX 2 /HPF (0-6)
[2024-03-26 13:00] LABS: LEUKOCYTE ESTERASE UR AUTO RFX 2+ (NEGATIVE); NITRITE, URINE AUTO RFX POSITIVE (NEGATIVE); WBC, URINE AUTO RFX 69 /HPF (0-3)
[2024-03-26] MEDS ORDERED: TIRZ7.5P SQ (15:06)
[2024-03-26] MEDS: LevoFLOXacin 750 MG TABLET PO ONE (15:35)
[2024-03-27 05:06] VITALS: BP 135/68; TEMP 97.7; O2SAT 95
[2024-03-27] MEDS: LevoFLOXacin 750 MG TABLET PO SCH (06:02)
[2024-03-28 04:30] VITALS: BP 125/66; TEMP 97.9; O2SAT 93
[2024-03-29 04:28] VITALS: BP 113/54; TEMP 97.7; O2SAT 95
[2024-03-29] MEDS: CEFDINIR 300 MG CAP (OMNICEF) PO SCH (08:29)
[2024-03-30 06:00] VITALS: BP 122/58; TEMP 98.2; O2SAT 94
[2024-03-31 04:30] VITALS: BP 122/60; TEMP 97.9; O2SAT 97
[2024-04-01 04:00] VITALS: BP 121/61; TEMP 97.2; O2SAT 97
[2024-04-02 04:10] VITALS: BP 123/61; TEMP 97.9; O2SAT 98
[2024-04-03 03:20] VITALS: BP 124/61; TEMP 98.2; O2SAT 100
[2024-04-04 04:02] VITALS: BP 126/59; TEMP 97.5; O2SAT 95
[2024-04-05 04:00] VITALS: BP 124/57; TEMP 97.9; O2SAT 97
[2024-04-05 14:41] LABS: KETONE, URINE AUTO RFX NEGATIVE (NEGATIVE); MUCUS, URINE RFX SMALL (NEGATIVE); NITRITE, URINE AUTO RFX NEGATIVE (NEGATIVE); RBC, URINE AUTO RFX 9 /HPF (0-3); SQUAM EPITHELIAL CELL UR AURFX 0 /HPF (0-6); WBC, URINE AUTO RFX 6 /HPF (0-3)
[2024-04-05 14:57] LABS: LEUKOCYTE ESTERASE UR AUTO RFX 1+ (NEGATIVE)
[2024-04-06 04:00] VITALS: BP 102/57; TEMP 98.1; O2SAT 94
[2024-04-07 04:34] VITALS: BP 111/49; TEMP 98.1; O2SAT 94
[2024-04-08 04:00] VITALS: BP 136/61; TEMP 98.2; O2SAT 96
[2024-04-09 05:12] VITALS: BP 123/59; TEMP 98.1; O2SAT 93
[2024-04-10 03:09] VITALS: BP 108/62; TEMP 97.7; O2SAT 95
[2024-04-11 04:50] VITALS: BP 111/62; TEMP 97.5; O2SAT 97
[2024-04-11 14:12] LABS: HEMATOCRIT 39.7 % (42.0-52.0); HEMOGLOBIN 12.3 g/dl (13.5-17.5); MEAN CORPUSCULAR HEMOGLOBIN 26.5 pg (27.0-33.0); MEAN CORPUSCULAR VOLUME 85.6 fl (80.0-96.0); PLATELET COUNT, AUTOMATED 287 10^3/uL (150-450); RED BLOOD COUNT 4.64 10^6/uL (4.30-6.10)
[2024-04-11 14:42] LABS: BLOOD UREA NITROGEN 17 MG/DL (9-23); CALCIUM LEVEL 10.1 MG/DL (8.5-10.1); CARBON DIOXIDE LEVEL 35 MMOL/L (20-31); CHLORIDE LEVEL 99 MMOL/L (98-107); CREATININE FOR GFR 0.74 MG/DL (0.70-1.30); GLOMERULAR FILTRATION RATE > 60.0 (>60); GLUCOSE, FASTING 103 MG/DL (60-100); MAGNESIUM LEVEL 2.1 MG/DL (1.8-2.4); POTASSIUM SERUM 3.9 MMOL/L (3.5-5.1); SODIUM LEVEL 140 MMOL/L (136-145)
[2024-04-12 04:10] VITALS: BP 113/62; TEMP 98.1; O2SAT 94
[2024-04-13 04:20] VITALS: BP 114/62; TEMP 98.1; O2SAT 96
[2024-04-13 09:02] VITALS: BP 133/77
[2024-04-13 17:20] VITALS: BP 131/75
[2024-04-14 03:45] VITALS: BP 119/53; TEMP 97.5; O2SAT 94
[2024-04-15 04:00] VITALS: BP 115/52; TEMP 97.2; O2SAT 94
[2024-04-15] MEDS: TIRZEPATIDE 7.5 MG/0.5 ML SQ ONE (11:43)
[2024-04-16 05:01] VITALS: BP 116/55; TEMP 97.3; O2SAT 95
[2024-04-17 03:56] VITALS: BP 115/56; TEMP 97.7; O2SAT 95
[2024-04-18 04:00] VITALS: BP 104/59; TEMP 97.7; O2SAT 94
[2024-04-18 06:49] VITALS: BP 110/55
[2024-04-18 09:05] VITALS: BP 106/88; O2SAT 91
[2024-04-19 04:00] VITALS: BP 104/61; TEMP 97.7; O2SAT 97
[2024-04-19 08:00] VITALS: BP 134/88
[2024-04-20 03:10] VITALS: BP 121/57; TEMP 98.1; O2SAT 96
[2024-04-20] MEDS: TIRZEPATIDE 7.5 MG/0.5 ML SQ SCH (08:45)
[2024-04-21 04:20] VITALS: BP 125/59; TEMP 98.6; O2SAT 94
[2024-04-22 04:00] VITALS: BP 125/58; TEMP 98.2; O2SAT 94
[2024-04-22 16:16] LABS: KETONE, URINE AUTO RFX NEGATIVE (NEGATIVE); MUCUS, URINE RFX SMALL (NEGATIVE); NITRITE, URINE AUTO RFX NEGATIVE (NEGATIVE); RBC, URINE AUTO RFX 97 /HPF (0-3); SQUAM EPITHELIAL CELL UR AURFX 1 /HPF (0-6)
[2024-04-22 16:20] LABS: LEUKOCYTE ESTERASE UR AUTO RFX 3+ (NEGATIVE); WBC, URINE AUTO RFX TNTC /HPF (0-3)
[2024-04-22] MEDS: LevoFLOXacin 750 MG TABLET PO SCH (17:20)
[2024-04-22] MEDS: KETOROLAC TROMETHAMINE 10 MG TAB PO ONE (17:22)
[2024-04-23 04:00] VITALS: BP 120/56; TEMP 98.1; O2SAT 94
[2024-04-24 04:27] VITALS: BP 123/55; TEMP 98.4; O2SAT 96
[2024-04-24 05:24] LABS: BASO % 0.4 % (0.0-1.0); EOS # 0.1 10^3/uL (0.0-0.5); EOS % 1.4 % (0.0-3.0); HEMATOCRIT 37.1 % (42.0-52.0); HEMOGLOBIN 11.4 g/dl (13.5-17.5); LYMPH # 1.1 10^3/uL (1.5-5.0); LYMPH % 13.8 % (24.0-44.0); MEAN CORPUSCULAR HEMOGLOBIN 26.4 pg (27.0-33.0); MEAN CORPUSCULAR HGB CONC 30.7 g/dl (32.0-36.5); MEAN CORPUSCULAR VOLUME 85.9 fl (80.0-96.0); MONO % 12.1 % (2.0-8.0); NEUTROPHILS # 5.8 10^3/uL (1.5-8.5); NEUTROPHILS % 71.4 % (36.0-66.0); PLATELET COUNT, AUTOMATED 253 10^3/uL (150-450); RED BLOOD COUNT 4.32 10^6/uL (4.30-6.10); WHITE BLOOD COUNT 8.1 10^3/uL (4.0-10.0)
[2024-04-24 05:46] LABS: ALBUMIN 2.7 G/DL (3.2-5.2); ALKALINE PHOSPHATASE 75 U/L (40-129); ALT/SGPT 16 U/L (7.0-40); AST/SGOT 8 U/L (<34); BILIRUBIN,TOTAL 0.2 MG/DL (0.3-1.2); BLOOD UREA NITROGEN 14 MG/DL (9-23); C REACTIVE PROTEIN QUANTITATIV 6.48 MG/DL (<1.0); CALCIUM LEVEL 9.2 MG/DL (8.5-10.1); CARBON DIOXIDE LEVEL 32 MMOL/L (20-31); CHLORIDE LEVEL 100 MMOL/L (98-107); CREATININE FOR GFR 0.73 MG/DL (0.70-1.30); GLOMERULAR FILTRATION RATE > 60.0 (>60); GLUCOSE, FASTING 93 MG/DL (60-100); POTASSIUM SERUM 3.9 MMOL/L (3.5-5.1); SODIUM LEVEL 139 MMOL/L (136-145); TOTAL PROTEIN 6.7 G/DL (5.7-8.2)
[2024-04-24] MEDS ORDERED: CHLORHEXIDINE GLUCONATE 0.12 % 15ML UDC (PERIDEX ORAL RINSE) MT PRN (12:30)
[2024-04-24] MEDS ORDERED: BENZOCAINE 20% GEL 9GM TUBE (ANBESOL MAX STRENGTH) MT PRN (12:30)
[2024-04-24] MEDS ORDERED: cefTRIAXone SOD 1 GM in DEXTROSE 5% (D5W) ADV/MINI-BAG 50 ML IV SCH (13:00)
[2024-04-24] MEDS ORDERED: DOXYCYCLINE HYCLATE 100MG TABLET PO SCH (13:35)
[2024-04-24] MEDS ORDERED: LIDOCAINE 1% SDV 5ML VIAL DILUENT ONE (15:00)
[2024-04-24] MEDS ORDERED: cefTRIAXone SOD 250MG VIAL IM ONE (15:00)
[2024-04-24] MEDS ORDERED: PILL CUTTER 1 EACH XX PRN (15:20)
[2024-04-24] MEDS: CEFUROXIME 500 MG TAB PO ONE (16:10)
[2024-04-24 17:50] VITALS: BP 125/58
[2024-04-24] MEDS: CEFUROXIME 500 MG TAB PO SCH (20:42)
[2024-04-25 04:00] VITALS: BP 122/59; TEMP 97.9; O2SAT 96
[2024-04-25 08:57] VITALS: BP 121/61
[2024-04-25] MEDS: DOCUSATE SODIUM 100MG CAPSULE PO PRN (17:18)
[2024-04-25 17:19] VITALS: BP 127/59
[2024-04-26 04:37] VITALS: BP 115/63; TEMP 98.2; O2SAT 97
[2024-04-26 06:16] LABS: BASO % 0.2 % (0.0-1.0); EOS # 0.2 10^3/uL (0.0-0.5); EOS % 2.2 % (0.0-3.0); HEMATOCRIT 37.6 % (42.0-52.0); HEMOGLOBIN 11.6 g/dl (13.5-17.5); LYMPH # 1.4 10^3/uL (1.5-5.0); LYMPH % 16.4 % (24.0-44.0); MEAN CORPUSCULAR HEMOGLOBIN 26.7 pg (27.0-33.0); MEAN CORPUSCULAR HGB CONC 30.9 g/dl (32.0-36.5); MEAN CORPUSCULAR VOLUME 86.4 fl (80.0-96.0); MONO # 0.7 10^3/uL (0.0-0.8); MONO % 8.5 % (2.0-8.0); NEUTROPHILS # 6.1 10^3/uL (1.5-8.5); NEUTROPHILS % 71.6 % (36.0-66.0); PLATELET COUNT, AUTOMATED 280 10^3/uL (150-450); RED BLOOD COUNT 4.35 10^6/uL (4.30-6.10); WHITE BLOOD COUNT 8.6 10^3/uL (4.0-10.0)
[2024-04-27 04:00] VITALS: BP 128/61; TEMP 97.3; O2SAT 97
[2024-04-28 04:00] VITALS: BP 117/67; TEMP 97.9; O2SAT 95
[2024-04-29 04:00] VITALS: BP 125/61; TEMP 98.2; O2SAT 96
[2024-04-30 04:02] VITALS: BP 120/60; TEMP 97.9; O2SAT 95
[2024-05-01 04:00] VITALS: BP 118/58; TEMP 98.1; O2SAT 96
[2024-05-02 03:38] VITALS: BP 113/58; TEMP 97.5; O2SAT 94
[2024-05-03 03:20] VITALS: BP 121/66; TEMP 98.2; O2SAT 91
[2024-05-04 04:00] VITALS: BP 127/66; TEMP 97.3; O2SAT 95
[2024-05-04] MEDS ORDERED: TIRZ7.5P SQ (15:22)
[2024-05-04] MEDS: LORazepam 0.5 MG TAB PO PRN (23:56)
[2024-05-05 03:57] VITALS: BP 115/62; TEMP 97.9; O2SAT 96
[2024-05-06 04:00] VITALS: BP 125/52; TEMP 98.2; O2SAT 97
[2024-05-07 03:50] VITALS: BP 125/60; TEMP 97.9; O2SAT 98
[2024-05-07 15:22] LABS: BLOOD UREA NITROGEN 15 MG/DL (9-23); CALCIUM LEVEL 9.3 MG/DL (8.5-10.1); CARBON DIOXIDE LEVEL 34 MMOL/L (20-31); CHLORIDE LEVEL 100 MMOL/L (98-107); GLOMERULAR FILTRATION RATE > 60.0 (>60); GLUCOSE, FASTING 126 MG/DL (60-100); POTASSIUM SERUM 3.8 MMOL/L (3.5-5.1); SODIUM LEVEL 140 MMOL/L (136-145)
[2024-05-07] MEDS: CALCIUM CARBONATE 500 MG CHEW U/D PO ONE (15:35)
[2024-05-07] MEDS: CEPHALEXIN 250MG CAPSULE PO SCH (17:12)
[2024-05-07] MEDS: POTASSIUM CHLORIDE 10MEQ SR TABLET PO SCH (20:53)
[2024-05-08 04:00] VITALS: BP 142/64; TEMP 96.8; O2SAT 97
[2024-05-09 04:00] VITALS: BP 116/59; TEMP 98.1; O2SAT 95
[2024-05-10 04:58] VITALS: BP 114/64; TEMP 97.3; O2SAT 94
[2024-05-11 04:35] VITALS: BP 116/62; TEMP 97.9; O2SAT 92
[2024-05-12 05:21] VITALS: BP 109/56; TEMP 97.7; O2SAT 97
[2024-05-12 08:02] VITALS: BP 134/71
[2024-05-13 05:13] VITALS: BP_SYST 132; BP_SYST 32; BP_DIAS 67; TEMP 97.3; O2SAT 93
[2024-05-14 04:25] VITALS: BP 130/66; TEMP 97.7; O2SAT 95
[2024-05-14 09:10] LABS: HEMOGLOBIN 12.1 g/dl (13.5-17.5); MEAN CORPUSCULAR HEMOGLOBIN 26.7 pg (27.0-33.0); MEAN CORPUSCULAR VOLUME 85.9 fl (80.0-96.0); PLATELET COUNT, AUTOMATED 290 10^3/uL (150-450); RED BLOOD COUNT 4.54 10^6/uL (4.30-6.10); WHITE BLOOD COUNT 9.8 10^3/uL (4.0-10.0)
[2024-05-14 09:44] LABS: BLOOD UREA NITROGEN 16 MG/DL (9-23); CALCIUM LEVEL 9.9 MG/DL (8.5-10.1); CARBON DIOXIDE LEVEL 35 MMOL/L (20-31); CHLORIDE LEVEL 99 MMOL/L (98-107); CREATININE FOR GFR 0.74 MG/DL (0.70-1.30); GLOMERULAR FILTRATION RATE > 60.0 (>60); GLUCOSE, FASTING 98 MG/DL (60-100); POTASSIUM SERUM 3.8 MMOL/L (3.5-5.1); SODIUM LEVEL 142 MMOL/L (136-145)
[2024-05-15 04:15] VITALS: BP 129/65; TEMP 97.5; O2SAT 92
[2024-05-16 03:25] VITALS: BP 127/65; TEMP 96.8; O2SAT 94
[2024-05-17 04:48] VITALS: BP 126/65; TEMP 97.7; O2SAT 95
[2024-05-18 03:10] VITALS: BP 126/63; TEMP 97.9; O2SAT 97
[2024-05-19 05:15] VITALS: BP 116/62; TEMP 97.9; O2SAT 95
[2024-05-20 03:29] VITALS: BP 121/56; TEMP 97.7; O2SAT 94
[2024-05-21 05:00] VITALS: BP 127/58; TEMP 97.9; O2SAT 95
[2024-05-22 04:20] VITALS: BP 125/59; TEMP 98.1; O2SAT 92
[2024-05-22 07:40] VITALS: O2SAT 93
[2024-05-22 17:09] VITALS: BP 119/57
[2024-05-23 04:00] VITALS: BP 118/59; TEMP 97.2; O2SAT 92
[2024-05-23 08:25] LABS: BASO % 0.3 % (0.0-1.0); EOS # 0.2 10^3/uL (0.0-0.5); HEMATOCRIT 39.7 % (42.0-52.0); HEMOGLOBIN 12.4 g/dl (13.5-17.5); LYMPH # 1.8 10^3/uL (1.5-5.0); LYMPH % 19.5 % (24.0-44.0); MEAN CORPUSCULAR HEMOGLOBIN 26.5 pg (27.0-33.0); MEAN CORPUSCULAR HGB CONC 31.2 g/dl (32.0-36.5); MEAN CORPUSCULAR VOLUME 84.8 fl (80.0-96.0); MONO # 0.8 10^3/uL (0.0-0.8); MONO % 8.2 % (2.0-8.0); NEUTROPHILS # 6.4 10^3/uL (1.5-8.5); PLATELET COUNT, AUTOMATED 282 10^3/uL (150-450); RED BLOOD COUNT 4.68 10^6/uL (4.30-6.10); WHITE BLOOD COUNT 9.3 10^3/uL (4.0-10.0)
[2024-05-23 08:45] LABS: BLOOD UREA NITROGEN 17 MG/DL (9-23); CALCIUM LEVEL 9.3 MG/DL (8.5-10.1); CARBON DIOXIDE LEVEL 34 MMOL/L (20-31); CHLORIDE LEVEL 101 MMOL/L (98-107); CREATININE FOR GFR 0.76 MG/DL (0.70-1.30); GLOMERULAR FILTRATION RATE > 60.0 (>60); GLUCOSE, FASTING 96 MG/DL (60-100); MAGNESIUM LEVEL 2.2 MG/DL (1.8-2.4); POTASSIUM SERUM 3.8 MMOL/L (3.5-5.1); SODIUM LEVEL 141 MMOL/L (136-145)
[2024-05-23] MEDS ORDERED: POTA-136 PO (10:45)
[2024-05-23] MEDS ORDERED: TORS20TA2 PO (10:45)
[2024-05-23] MEDS ORDERED: SENN-52 PO (10:45)
[2024-05-23] MEDS ORDERED: HYDR-4514 PO (10:45)
[2024-05-23] MEDS ORDERED: LORA1TAB23 PO (10:45)
[2024-05-23] MEDS ORDERED: CEPH250T PO (10:45)
[2024-05-23] MEDS ORDERED: CETI10TA PO (10:45)
[2024-05-23] MEDS ORDERED: VANI1CRE5 TOP (10:45)
[2024-05-23] MEDS ORDERED: TIRZ7.5P SQ (10:45)
[2024-05-23] MEDS ORDERED: PREG200C2 PO (12:41)
[2024-05-24 03:00] VITALS: BP 129/62; TEMP 98.2; O2SAT 96
== END 2024-05-24 13:36 | disposition home health service (06) | DRG 205 ==
LOC: M ED 16:19 → EDBD 16:19 → M ED INP 16:20 → UNDOADMIN 08-19 14:42 → M ED INP 08-19 14:42 → UNDOADMOB 08-23 14:42 → INTOOBSV 08-23 14:42 → M ED INP 08-23 14:42 → M MSPAV 08-23 18:41 → M ED INP 08-23 18:41 → M MSPAV 08-23 18:41 → OBSVTOIN 08-27 11:34 → M MSPAV 09-01 14:24
PROVIDERS: ADMIT Internal Medicine; ATTEND Internal Medicine
PROC: B246ZZZ Ultrasonography of Right and Left Heart (ICD-10-PCS; principal; 2023-08-23)
PROC: 0HDRXZZ Extraction of Toe Nail, External Approach (ICD-10-PCS; 2023-09-14)
PROC: 0HDRXZZ Extraction of Toe Nail, External Approach (ICD-10-PCS; 2023-12-12)
PROC: 0HDRXZZ Extraction of Toe Nail, External Approach (ICD-10-PCS; 2024-03-17)
PROC: 0HDRXZZ Extraction of Toe Nail, External Approach (ICD-10-PCS; 2024-05-18)
DX: E66.2 Morbid (severe) obesity with alveolar hypoventilation (principal); I50.33 Acute on chronic diastolic (congestive) heart failure; Z68.45 Body mass index [BMI] 70 or greater, adult; N39.0 Urinary tract infection, site not specified; E87.3 Alkalosis; L03.311 Cellulitis of abdominal wall; I89.0 Lymphedema, not elsewhere classified; L98.499 Non-pressure chronic ulcer of skin of other sites with unspecified severity; R26.2 Difficulty in walking, not elsewhere classified; I11.0 Hypertensive heart disease with heart failure; E78.5 Hyperlipidemia, unspecified; K21.9 Gastro-esophageal reflux disease without esophagitis; F17.290 Nicotine dependence, other tobacco product, uncomplicated; F41.9 Anxiety disorder, unspecified; F31.9 Bipolar disorder, unspecified; G89.29 Other chronic pain; D50.9 Iron deficiency anemia, unspecified; J44.9 Chronic obstructive pulmonary disease, unspecified; J45.909 Unspecified asthma, uncomplicated; M54.32 Sciatica, left side; L89.141 Pressure ulcer of left lower back, stage 1; L89.301 Pressure ulcer of unspecified buttock, stage 1; L89.131 Pressure ulcer of right lower back, stage 1; H10.9 Unspecified conjunctivitis; L60.0 Ingrowing nail; M17.0 Bilateral primary osteoarthritis of knee; G25.81 Restless legs syndrome; K59.00 Constipation, unspecified; B37.2 Candidiasis of skin and nail; E87.5 Hyperkalemia; J98.4 Other disorders of lung; I50.810 Right heart failure, unspecified; Z74.1 Need for assistance with personal care; Z88.3 Allergy status to other anti-infective agents; Z90.49 Acquired absence of other specified parts of digestive tract; Z88.0 Allergy status to penicillin; Z88.6 Allergy status to analgesic agent; Z88.8 Allergy status to other drugs, medicaments and biological substances; Z79.84 Long term (current) use of oral hypoglycemic drugs; Z79.52 Long term (current) use of systemic steroids; Z79.811 Long term (current) use of aromatase inhibitors; Z79.891 Long term (current) use of opiate analgesic; Z79.899 Other long term (current) drug therapy; Z74.01 Bed confinement status; R30.0 Dysuria; H61.23 Impacted cerumen, bilateral; Z71.3 Dietary counseling and surveillance; B86 Scabies; E87.6 Hypokalemia; K08.89 Other specified disorders of teeth and supporting structures; K05.10 Chronic gingivitis, plaque induced